=== PATIENT | female | born 1990 | race Caucasian/White ===

== ENCOUNTER 2017-10-11 22:26 | Emergency (ER) | payer OTHER ==
[~2017-10-11] VITALS: Ht 160 cm; Wt 84.8 kg
[~2017-10-11 22:26] MED LIST: ACET325 PO; AMLO5 PO; ATOR10 PO; AZIT250 PO; BAYER CHEWABLE81 MG PO; BUME2 PO; CLIN300 PO; CLON.1 PO; Catapres0.2 MG PO; DEXT40GEL PO; FURO20 PO; FURO40 PO; FURO80 PO; FUROSEMIDE PO; HYDACE5 PO; IBUP400 PO; INSDETPEN SC; INSN100I; INSR10I SC; INSUASPI; INSUASPI SC; INSULANI; INSULANI SC; INSULANPEN SC; LABE100 PO; LABE200 PO; LEVEMIR FL100 UNIT/1 SQ; LEVO750 PO; LISI5 PO; METO2.5 PO; MUPI1NAS; NEPHROCAPS QT1 EACH PO; Novolog100 UNIT/1 SC; POTASSIUM PO; POTCHL10ER PO; POTCHL20ER PO; RXPROM25 PO; SEVEC800 PO; SLOW FE142 MG PO; SPIR25 PO; SULTRIDS PO; Verotin-Gr Cap1 EACH PO
[2017-10-11] MEDS ORDERED: CINA30 PO (23:38)
[2017-10-11] MEDS ORDERED: Amoxicillin500 M1 PO (23:53)
== END 2017-10-11 23:54 | disposition home or self-care (01) ==
LOC: ER 22:26
DX: J02.0 Streptococcal pharyngitis (principal); E10.9 Type 1 diabetes mellitus without complications; I10 Essential (primary) hypertension; Z91.048 Other nonmedicinal substance allergy status; Z88.8 Allergy status to other drugs, medicaments and biological substances; Z79.899 Other long term (current) drug therapy; Z79.2 Long term (current) use of antibiotics
CPT/HCPCS: 99283

== ENCOUNTER 2018-04-26 10:31 | Observation (INO) | payer OTHER ==
[~2018-04-26] VITALS: Ht 160 cm; Wt 80.4 kg
[~2018-04-26 10:31] MED LIST changes: +Amoxicillin500 M1 PO; +CINA30 PO
[2018-04-26] MEDS ORDERED: CALC.25 PO (10:40)
[2018-04-26 11:30] LABS: BASOPHILS ABSOLUTE AUTO 0.02 K/mm3 (0.00-0.23); BASOPHILS PERCENT AUTO 0 % (0-2); EOSINOPHILS ABSOLUTE AUTO 0.13 K/mm3 (0.00-0.68); EOSINOPHILS PERCENT AUTO 2 % (0-6); IMMATURE GRAN ABSOLUTE AUTO 0.03 K/mm3 (0.00-0.10); IMMATURE GRAN PERCENT AUTO 1 % (0-1); LYMPHOCYTES ABSOLUTE AUTO 1.55 K/mm3 (0.84-5.20); LYMPHOCYTES PERCENT AUTO 25 % (21-46); MONOCYTES ABSOLUTE AUTO 0.36 K/mm3 (0.16-1.47); MONOCYTES PERCENT AUTO 6 % (4-13); Mean Corpuscular HGB 29.4 pg (26.0-34.0); Mean Corpuscular HGB Conc 34.2 g/dL (31.5-36.5); Mean Corpuscular Volume 86 fL (80-100); Mean Platelet Volume 8.7 fL (9.1-12.4); NEUTROPHILS ABSOLUTE AUTO 4.19 K/mm3 (1.96-9.15); NEUTROPHILS PERCENT AUTO 67 % (41-73); Platelet Count 204 K/mm3 (150-400); RDW Coefficient Variation 12.9 % (11.7-14.2); RDW Standard Deviation 40.6 fL (35.1-46.3); White Blood Cell Count 6.28 K/mm3 (4.00-11.30)
[2018-04-26 11:31] LABS: Hematocrit 15.5 % (33.0-51.0); Hemoglobin 5.3 g/dL (11.5-16.0)
[2018-04-26 11:47] LABS: Magnesium, Blood 2.2 mg/dL (1.6-2.4)
[2018-04-26 11:54] LABS: Beta-hydroxybutyrate 1.1 mg/dL (0.2-2.8)
[2018-04-26 12:08] LABS: Bun/Creatinine Ratio 9.2 (12.0-20.0); Calcium, Blood 7.5 mg/dL (8.5-10.1); Creatinine, Blood 10.4 mg/dL (0.40-1.00); Potassium, Blood 3.4 mmol/L (3.5-5.5)
[2018-04-26] MEDS ORDERED: Calcium Acetat667 MG PO (13:58)
[2018-04-27 04:49] LABS: Hematocrit 23.1 % (33.0-51.0); Hemoglobin 8.1 g/dL (11.5-16.0); Mean Corpuscular HGB 29.2 pg (26.0-34.0); Mean Corpuscular HGB Conc 35.1 g/dL (31.5-36.5); Mean Platelet Volume 8.9 fL (9.1-12.4); Platelet Count 215 K/mm3 (150-400); RDW Coefficient Variation 13.2 % (11.7-14.2); RDW Standard Deviation 40.4 fL (35.1-46.3); Red Blood Cell Count 2.77 M/mm3 (3.80-5.20)
[2018-04-27 05:06] LABS: Mean Corpuscular Volume 83 fL (80-100)
[2018-04-27 05:14] LABS: Magnesium, Blood 2.1 mg/dL (1.6-2.4)
[2018-04-27 05:22] LABS: Albumin, Blood 2.3 g/dL (3.4-5.0); Anion Gap 12 mmol/L (6-16); Blood Urea Nitrogen 95 mg/dL (8-24); Bun/Creatinine Ratio 9.4 (12.0-20.0); CO2, Blood 26 mmol/L (21-32); Calcium, Blood 6.8 mg/dL (8.5-10.1); Chloride, Blood 99 mmol/L (98-108); Glomerular Filtration Rate 5 (60-); Glucose, Blood 190 mg/dL (70-99); Phosphorus, Blood 4.8 mg/dL (2.5-4.9); Potassium, Blood 2.9 mmol/L (3.5-5.5); Sodium, Blood 137 mmol/L (136-145)
== END 2018-04-27 09:45 | disposition home or self-care (01) ==
LOC: ER 10:31 → PCU 10:32
PROVIDERS: Emergency Medicine; Internal Medicine; Internal Medicine Nephrology
DX: D62 Acute posthemorrhagic anemia (principal); E10.65 Type 1 diabetes mellitus with hyperglycemia; E10.22 Type 1 diabetes mellitus with diabetic chronic kidney disease; I12.0 Hypertensive chronic kidney disease with stage 5 chronic kidney disease or end stage renal disease; N18.6 End stage renal disease; E87.6 Hypokalemia; E86.9 Volume depletion, unspecified; Z88.8 Allergy status to other drugs, medicaments and biological substances; Z91.048 Other nonmedicinal substance allergy status; Z79.899 Other long term (current) drug therapy
CPT/HCPCS: 36415; 36430; 76830; 76856; 80048; 80069; 82010; 82947; 83735; 84132; 84703; 85025; 85027; 86850; 86900; 86901; 86923; 96372; 99285-25; G0257; G0378; J0881; J7030; P9016

== ENCOUNTER → 2018-10-27 | Outpatient (CLI) | payer OTHER ==
[~2018-10-27] MED LIST changes: +CALC.25 PO; +Calcium Acetat667 MG PO
[2018-10-27 14:05] LABS: Influenza A Negative (NEGATIVE); Influenza B Negative (NEGATIVE)
== END ==
LOC: LAB 13:34 → LAB SHORT 13:34
PROVIDERS: Nurse Practitioner Family
DX: R50.9 Fever, unspecified (principal); R05 Cough; R53.83 Other fatigue
CPT/HCPCS: 87804

== ENCOUNTER 2018-10-31 17:27 | Emergency (ER) | payer OTHER ==
[~2018-10-31] VITALS: Ht 160 cm; Wt 85.7 kg
[2018-10-31 18:42] LABS: BASOPHILS ABSOLUTE AUTO 0.01 K/mm3 (0.00-0.23); BASOPHILS PERCENT AUTO 0 % (0-2); EOSINOPHILS ABSOLUTE AUTO 0.15 K/mm3 (0.00-0.68); EOSINOPHILS PERCENT AUTO 2 % (0-6); Hematocrit 22.6 % (33.0-51.0); Hemoglobin 7.9 g/dL (11.5-16.0); IMMATURE GRAN ABSOLUTE AUTO 0.02 K/mm3 (0.00-0.10); IMMATURE GRAN PERCENT AUTO 0 % (0-1); LYMPHOCYTES ABSOLUTE AUTO 1.28 K/mm3 (0.84-5.20); LYMPHOCYTES PERCENT AUTO 17 % (21-46); MONOCYTES ABSOLUTE AUTO 0.39 K/mm3 (0.16-1.47); MONOCYTES PERCENT AUTO 5 % (4-13); Mean Corpuscular HGB 29.6 pg (26.0-34.0); Mean Corpuscular Volume 85 fL (80-100); Mean Platelet Volume 8.8 fL (9.1-12.4); NEUTROPHILS ABSOLUTE AUTO 5.66 K/mm3 (1.96-9.15); NEUTROPHILS PERCENT AUTO 75 % (41-73); Platelet Count 272 K/mm3 (150-400); RDW Coefficient Variation 11.7 % (11.7-14.2); RDW Standard Deviation 35.5 fL (35.1-46.3); Red Blood Cell Count 2.67 M/mm3 (3.80-5.20); White Blood Cell Count 7.51 K/mm3 (4.00-11.30)
[2018-10-31 19:09] LABS: Albumin, Blood 2.4 g/dL (3.4-5.0); Albumin/Globulin Ratio 0.6 (0.8-1.8); Bilirubin, Total 0.3 mg/dL (0.1-1.0); Bun/Creatinine Ratio 7.3 (12.0-20.0); Calcium, Blood 7.6 mg/dL (8.5-10.1); Creatinine, Blood 15.4 mg/dL (0.40-1.00); Globulin, Blood 3.8 g/dL (2.2-4.0); Total Protein, Blood 6.2 g/dL (6.4-8.2)
[2018-10-31 20:32] LABS: Amylase, Blood 61 U/L (25-115)
[2018-10-31 20:55] LABS: Influenza A Negative (NEGATIVE); Influenza B Negative (NEGATIVE)
== END 2018-10-31 21:28 | disposition home or self-care (01) ==
LOC: ER 17:27
PROVIDERS: Emergency Medicine; Physician Assistant
DX: K29.00 Acute gastritis without bleeding (principal); E87.6 Hypokalemia; E10.9 Type 1 diabetes mellitus without complications; I10 Essential (primary) hypertension; Z79.899 Other long term (current) drug therapy
CPT/HCPCS: 36415; 80053; 82150; 83690; 85025; 87804; 96360; 99284-25; J7030

== ENCOUNTER 2018-11-11 21:08 | Inpatient (IN) | payer OTHER ==
[~2018-11-11] VITALS: Ht 160 cm; Wt 86.2 kg
[~2018-11-11 21:08] MED LIST changes: +LOSA50 PO
[2018-11-11 21:57] LABS: BASOPHILS ABSOLUTE AUTO 0.01 K/mm3 (0.00-0.23); BASOPHILS PERCENT AUTO 0 % (0-2); EOSINOPHILS ABSOLUTE AUTO 0.08 K/mm3 (0.00-0.68); EOSINOPHILS PERCENT AUTO 1 % (0-6); Hemoglobin 9.1 g/dL (11.5-16.0); IMMATURE GRAN ABSOLUTE AUTO 0.05 K/mm3 (0.00-0.10); IMMATURE GRAN PERCENT AUTO 0 % (0-1); LYMPHOCYTES ABSOLUTE AUTO 0.33 K/mm3 (0.84-5.20); LYMPHOCYTES PERCENT AUTO 3 % (21-46); MONOCYTES ABSOLUTE AUTO 0.52 K/mm3 (0.16-1.47); MONOCYTES PERCENT AUTO 4 % (4-13); Mean Corpuscular HGB 29.4 pg (26.0-34.0); Mean Corpuscular Volume 84 fL (80-100); Mean Platelet Volume 8.4 fL (9.1-12.4); NEUTROPHILS ABSOLUTE AUTO 11.77 K/mm3 (1.96-9.15); NEUTROPHILS PERCENT AUTO 92 % (41-73); Platelet Count 321 K/mm3 (150-400); RDW Coefficient Variation 11.6 % (11.7-14.2); RDW Standard Deviation 35.5 fL (35.1-46.3); White Blood Cell Count 12.76 K/mm3 (4.00-11.30)
[2018-11-11 22:21] LABS: Alanine Aminotransfer (ALT/SGP 8 U/L (12-78); Albumin/Globulin Ratio 0.5 (0.8-1.8); Alk Phos 165 U/L (50-136); Anion Gap 13 mmol/L (6-16); Aspartate Aminotrans (AST/SGOT <3 U/L (12-37); Bilirubin, Total 0.3 mg/dL (0.1-1.0); Blood Urea Nitrogen 125 mg/dL (8-24); Bun/Creatinine Ratio 8.2 (12.0-20.0); CO2, Blood 28 mmol/L (21-32); Chloride, Blood 91 mmol/L (98-108); Globulin, Blood 4.3 g/dL (2.2-4.0); Glomerular Filtration Rate 3 (60-); Glucose, Blood 256 mg/dL (70-99); Potassium, Blood 3.5 mmol/L (3.5-5.5); Sodium, Blood 132 mmol/L (136-145); Total Protein, Blood 6.3 g/dL (6.4-8.2)
[2018-11-12 00:28] LABS: Automated BF RBC Count 0.004 M/mm3 (0-0); Body Fluid WBC Count 9190 /mm3 (0-999); RBC Count, Body Fluid 4000 /mm3 (0-0)
[2018-11-12 00:39] LABS: Appearance, Body Fluid Cloudy (Clear); Color, Body Fluid Yellow (None-Yellow); Total Cell Count, Body Fluid 100
[2018-11-12] MEDS ORDERED: Amoxicillin500 MG PO (00:39)
[2018-11-12] MEDS ORDERED: BENZ100A PO (00:39)
--- NOTE | 2018-11-12 00:55 | NUR ---
DIALYSIS CALLED IN BY DR BLUNT. PT IN ER ROOM 19. WAITED ABOUT 10 MIN FOR PT TO RETURN TO ROOM FROM CT SCAN. TOOK PD SAMPLE PER PROTOCAL, LABELED AND DELIVERED TO THE LAB. ORDERS FOR CELL CT, C&S, AND GRAM STAIN. DR BLUNT GAVE ORDERS FOR 3 IN AND OUT FLUSHES TO BE DONE AND THEN NORMAL PD TX WITH ANTIBIOTICS IN LAST DWELL. DIANEAL BAGS AND ORDERS DELIVERED TO THE PHARMACY. WAITING FOR PT BE ADMITTED TO A ROOM AND RX TO BE COMPLETED.
--- NOTE | 2018-11-12 02:53 | NUR ---
DIALYSIS-PD PT IN ROOM 356. TOOK PD MACHINE TO ROOM AND CONNECTED HER TO 3 IN AND OUT FLUSHES AT 0226. HAD TO BYPASS THE INITIAL DRAIN DUE TO LOW VOLUME. ADVISED THE MEDICAL FLOOR RN TO CALL IN CASE OF ALARMS. SITE WNL.
--- NOTE | 2018-11-12 04:30 | NUR ---
DIALYSIS-PD DC'ED IN AND FLUSHES AND CONNECTED TO THE NIGHT DIALYSIS. LAST FILL HAS ANTIBIOTICS IN IT. DONE PER PROTOCAL.
--- NOTE | 2018-11-12 04:46 | NUR ---
LATE ENTRY; 0210 PT ADMITTED TO UNIT AFTER TRANSPORT VIA STRETCHER FROM ER WITH SPOUSE AT SIDE. PTS WAS STARTED ON PERITNEAL DIALYSIS IMMEDIATELY AFTER ARRIVING TO ROOM BY Ella MEDRANO RN. PT IS NOTED TO HAVE INSULIN PUMP LEFT FLANK THAT WITHOU S/S INFECTION AT INSERTION SITE.
[2018-11-12 05:27] LABS: Adenovirus Not Detected (NOT DETECT); Bordetella pertussis Not Detected (NOT DETECT); Chlamydophila pneumoniae Not Detected (NOT DETECT); Coronavirus 229E Not Detected (NOT DETECT); Coronavirus HKU1 Not Detected (NOT DETECT); Coronavirus NL63 Not Detected (NOT DETECT); Coronavirus OC43 Not Detected (NOT DETECT); Human Metapneumovirus Not Detected (NOT DETECT); Human Rhinovirus/Enterovirus Not Detected (NOT DETECT); Influenza A Not Detected (NOT DETECT); Influenza A/2009-H1 Not Detected (NOT DETECT); Influenza A/H1 Not Detected (NOT DETECT); Influenza A/H3 Not Detected (NOT DETECT); Influenza B Not Detected (NOT DETECT); Mycoplasma pneumoniae Not Detected (NOT DETECT); Parainfluenza Virus 1 Not Detected (NOT DETECT); Parainfluenza Virus 2 Not Detected (NOT DETECT); Parainfluenza Virus 3 Not Detected (NOT DETECT); Parainfluenza Virus 4 Not Detected (NOT DETECT); Respiratory Syncytial Virus Not Detected (NOT DETECT)
[2018-11-12 05:33] LABS: Hematocrit 22.1 % (33.0-51.0); Hemoglobin 7.6 g/dL (11.5-16.0)
--- NOTE | 2018-11-12 06:01 | NUR ---
PT AM LABS: HG 7.6, HCT 22.1; BP 134/84, 100.5--111--20. TYLENOL 650MG PO GIVEN AT 0545. DR ADAM NOTIFIED OF RESULTS WITH NO ORDERS AT THIS TIME.
[2018-11-12 06:09] LABS: Albumin, Blood 1.6 g/dL (3.4-5.0); Anion Gap 10 mmol/L (6-16); Blood Urea Nitrogen 121 mg/dL (8-24); Bun/Creatinine Ratio 8.4 (12.0-20.0); CO2, Blood 28 mmol/L (21-32); Calcium, Blood 7.8 mg/dL (8.5-10.1); Chloride, Blood 93 mmol/L (98-108); Glomerular Filtration Rate 3 (60-); Glucose, Blood 240 mg/dL (70-99); Phosphorus, Blood 3.8 mg/dL (2.5-4.9); Potassium, Blood 3.1 mmol/L (3.5-5.5); Sodium, Blood 131 mmol/L (136-145)
[2018-11-12 10:50] LABS: Automated BF WBC Count 1.321 K/mm3 (0-999); Body Fluid WBC Count 1321 /mm3 (0-999)
--- NOTE | 2018-11-12 11:20 | NUR ---
DIALYSIS-PD 1015 WENT TO PT ROOM AFTER CALLING DR BLUNT FOR ORDERS. HE WANTS A CELL COUNT DONE FROM THE PD BAG. CHECKED ON STATUS OF LAST NIGHTS TX. STILL RUNNING. TOOK SAMPLE FROM PD BAG AND DELIVERED TO THE LAB. TOOK DIANEAL BAG FOR IN AND OUT FLUSHES X 3 TO THE PHARMACY FOR HEPARIN IP. (1.5% 6 LITER).
[2018-11-12 11:34] LABS: RBC Count, Body Fluid 21 /mm3 (0-0)
[2018-11-12 11:36] LABS: Color, Body Fluid No color (None-Yellow)
[2018-11-12 11:37] LABS: Appearance, Body Fluid Hazy (Clear)
[2018-11-12 11:49] LABS: Total Cell Count, Body Fluid 200
--- NOTE | 2018-11-12 13:03 | NUR ---
DIALYSIS-PD SET UP MACHINE FOR IN AND FLUSHES. CALLED DR BLUNT WITH CELL COUNT RESULTS. HE GAVE ME ORDERS FOR TONIGHTS TREATMENT.TOOK THE BAGS TO THE PHARMACY. CHECKED ON PT, SHE IS RECIEVING A UNIT OF PRBC . SHE IS STILL DOING HER NIGHT TIME TREATMENT, IT WAS STARTED LATE DUE TO ADMISSION.
--- NOTE | 2018-11-12 17:45 | NUR ---
DIALYSIS-PD TX DC'ED AT 1430. 1382 ID [id number] UF. NO CHANGES PT FEELS ALITTLE BETTER. TOOK A SHOWER.
--- NOTE | 2018-11-12 17:48 | NUR ---
DIALYSIS-PD PT CONNECTED TO 3 IN AND OUT FLUSHES WITH 1.5% DIANEAL AT 1725 PER PROTOCAL. NO CHANGES.
--- NOTE | 2018-11-12 18:36 | NUR ---
PATIENT HAD PD TODAY AND ONE UNIT RBC. TOLERATED WELL. NO CHANGES IN CONDITION.
--- NOTE | 2018-11-12 20:01 | NUR ---
DIALYSIS-PD 1922 DC'ED THE 3 IN AND OUT FLUSHES ID [id number], UF [id number]. CONNECTED THE NIGHT TIME TX PER PROTOCAL. STARTED 1934. DRAINAGE BAG FROM FLUSHES STILL CLOUDY BUT MUCH IMPROVED.
--- NOTE | 2018-11-13 04:43 | NUR ---
28 Y/O FEMALE RESTED COMFORTABLY ALL EVENING IN BED, NO NAUSEA OR PAIN VOICED. PT HAD PERITONEAL DIALYSIS PERFORMED ALL NIGHT AT BEDSIDE. PT BED IN LOW POSITION, CALL LIGHT AT SIDE.
[2018-11-13 05:02] LABS: Hematocrit 25.1 % (33.0-51.0); Hemoglobin 8.6 g/dL (11.5-16.0)
[2018-11-13 05:38] LABS: Magnesium, Blood 1.9 mg/dL (1.6-2.4)
[2018-11-13 05:46] LABS: Albumin, Blood 1.6 g/dL (3.4-5.0); Anion Gap 7 mmol/L (6-16); Blood Urea Nitrogen 85 mg/dL (8-24); CO2, Blood 31 mmol/L (21-32); Calcium, Blood 7.9 mg/dL (8.5-10.1); Chloride, Blood 94 mmol/L (98-108); Glomerular Filtration Rate 4 (60-); Glucose, Blood 211 mg/dL (70-99); Phosphorus, Blood 4.9 mg/dL (2.5-4.9); Potassium, Blood 3.2 mmol/L (3.5-5.5); Sodium, Blood 132 mmol/L (136-145)
--- NOTE | 2018-11-13 07:17 | NUR ---
PATIENT AWAKE, ALERT AND COMFORTABLE THYIS AM. SITTING UP IN BED WATCHING TV. OVERNIGHT CCPD THERAPY COMPLETED. PATIENT AESEPTICALLY DISCONNECTED AND CAPPED WITH NEW MINI-CAP. EFFLUENT REMAINS BUT SIGNIFICANTLY IMPROVED FROM TIME OF ADMIT. DR BLUNT CONTACTED FOR ORDERS / TODAY'S PLAN OF CARE. IN/OUT FLUSHES ORDERED FOR THIS MORNING.
--- NOTE | 2018-11-13 07:53 | NUR ---
[facility] FLUSHES SET UP PER DR BLUNT'S ORDER. PATIENT TO RECIEVE CCPD FLUSHES WITH UF CONCURRENT WITH ORDERED ONE UNIT PRBC TRANSFUSION ADMINISTERED PERIPHERALLY. PATIENT IN BED, WATCHING TV AND VERBALIZES COMFORT AT THIS TIME.
--- NOTE | 2018-11-13 13:11 | NUR ---
[facility] DAYTIME THERAPY COMPLETED. PATIENT UP IN ROOM GETTING PREPARED TO LEAVE FOR HOME. DISCHARGE ORDERS HAVE BEEN POSTED. PER DR BULNT'S INSTRUCTION, PATIENT HAS BEEN REQUESTED TO STOP BY THE [facility] ON THE WAY HOME TO CHECK IN WITH REEMA, THE P.D NURSE, AND SMALL PACKAGE AND BUNDLE SORTER CLERK ORDERED IP ANTIBIOTICS FOR USE AT HOME. PATIENT UNDERSTANDS INSTRUCTIONS AND WILL COMPLY.
--- NOTE | 2018-11-13 16:16 | NUR ---
DISCHARGED HOME AT 1357 WITH HER MOTHER. SHE HAS HER BELONGINGS AND INSTRUCTIONS. SHE IS GOING FROM HERE TO [facility]. SHE UNDERSTANDS SHE NEEDS ANTIBIOTICS IN HER PERITONEAL DIALYSATE. NO COMPLAINTS. PD CATH SITE WNL. SHE DID NOT NEED TO GIVE HERSELF ANY ADDITIONAL INSULIN TODAY. CBG'S CONTROLLED WELL WITH THE BASAL RATE ON HER INSULIN PUMP.SHE RECEIVED 1 UNIT OF PRBC'S THIS MORNING WHILE SHE HAD SOME INTRAPERITONEAL DIALYSIS.
== END 2018-11-13 13:57 | disposition home or self-care (01) | DRG 871 ==
LOC: ER 21:08 → MEDS 11-12 00:54 → ENPENDDIS 11-13 11:10 → MEDS 11-13 13:57
PROVIDERS: Emergency Medicine; Internal Medicine Nephrology; ADMIT Family Medicine
DX: A41.9 Sepsis, unspecified organism (principal); K65.2 Spontaneous bacterial peritonitis; N18.6 End stage renal disease; I12.0 Hypertensive chronic kidney disease with stage 5 chronic kidney disease or end stage renal disease; E87.1 Hypo-osmolality and hyponatremia; E10.22 Type 1 diabetes mellitus with diabetic chronic kidney disease; E66.01 Morbid (severe) obesity due to excess calories; D63.1 Anemia in chronic kidney disease; Z99.2 Dependence on renal dialysis; Z96.41 Presence of insulin pump (external) (internal); Z68.33 Body mass index [BMI] 33.0-33.9, adult
CPT/HCPCS: 36415; 36430; 71046; 74177; 80053; 80069; 82947; 83605; 83690; 83735; 85014; 85018; 85025; 86850; 86900; 86901; 86923; 87040; 87070; 87075; 87077; 87081; 87186; 87205; 87486; 87581; 87633; 87798; 89051; 96361-59; 96374-59; 99285-25; J0690; J0696; J0713; J0881; J1644; J2405; J3480; J7030; P9016; Q9967

== ENCOUNTER 2019-04-20 04:12 | Observation (INO) | payer OTHER ==
[~2019-04-20] VITALS: Ht 160 cm; Wt 86.2 kg
[~2019-04-20 04:12] MED LIST changes: +ACET500 PO; +Amoxicillin500 MG PO; +BENZ100A PO; -CALC.25 PO; +CEPH500 PO; +Calcitriol0.5 MCG PO; +Novolog100 UNIT/1; -Novolog100 UNIT/1 SC; +PROM25 PO; +VIRT-CAPS SOFTGE1 MG PO
[2019-04-20] MEDS ORDERED: PANT20 PO (04:30)
[2019-04-20] MEDS ORDERED: ONDA4ODT PO (04:34)
[2019-04-20 04:45] LABS: BASOPHILS ABSOLUTE AUTO 0.02 K/mm3 (0.00-0.23); BASOPHILS PERCENT AUTO 0 % (0-2); EOSINOPHILS ABSOLUTE AUTO 0.01 K/mm3 (0.00-0.68); EOSINOPHILS PERCENT AUTO 0 % (0-6); Hematocrit 30.7 % (33.0-51.0); Hemoglobin 10.4 g/dL (11.5-16.0); IMMATURE GRAN ABSOLUTE AUTO 0.04 K/mm3 (0.00-0.10); IMMATURE GRAN PERCENT AUTO 1 % (0-1); LYMPHOCYTES ABSOLUTE AUTO 0.86 K/mm3 (0.84-5.20); LYMPHOCYTES PERCENT AUTO 10 % (21-46); MONOCYTES ABSOLUTE AUTO 0.38 K/mm3 (0.16-1.47); MONOCYTES PERCENT AUTO 5 % (4-13); Mean Corpuscular HGB 28.3 pg (26.0-34.0); Mean Corpuscular HGB Conc 33.9 g/dL (31.5-36.5); Mean Corpuscular Volume 83 fL (80-100); Mean Platelet Volume 8.9 fL (9.1-12.4); NEUTROPHILS ABSOLUTE AUTO 7.19 K/mm3 (1.96-9.15); NEUTROPHILS PERCENT AUTO 85 % (41-73); Platelet Count 233 K/mm3 (150-400); RDW Coefficient Variation 11.9 % (11.7-14.2); RDW Standard Deviation 36.1 fL (35.1-46.3); Red Blood Cell Count 3.68 M/mm3 (3.80-5.20)
[2019-04-20 05:05] LABS: Base Excess Venous -0.7 mmol/L; Bicarbonate Venous 23.9 mmol/L (24.0-30.0); PCO2 Venous 41.9 mmHg (38-42); PO2 Venous 131 mmHg (38-42); pH Blood Venous 7.38 (7.34-7.37)
[2019-04-20 05:10] LABS: Magnesium, Blood 2.2 mg/dL (1.6-2.4)
[2019-04-20 05:13] LABS: Albumin, Blood 3.1 g/dL (3.4-5.0); Albumin/Globulin Ratio 0.9 (0.8-1.8); Bilirubin, Total 0.4 mg/dL (0.1-1.0); Bun/Creatinine Ratio 8.5 (12.0-20.0); Calcium, Blood 8.5 mg/dL (8.5-10.1); Creatinine, Blood 17.1 mg/dL (0.40-1.00); Globulin, Blood 3.6 g/dL (2.2-4.0); Potassium, Blood 4.4 mmol/L (3.5-5.5); Total Protein, Blood 6.7 g/dL (6.4-8.2)
[2019-04-20 05:22] LABS: Glucose, Blood 564 mg/dL (70-99)
--- NOTE | 2019-04-20 07:33 | NUR ---
ASSUMED CARE OF PT AT 0640, ARRIVED VIA STRETCHER TO ICU. PT IS ALERT AND ORIENTED X SELF, PLACE, SITUATION, AND DATE. PT SEEMS LETHARGIC. C/O OF MILD NAUSEA AND 6/10 ACHING LOWER BACK PAIN. PT ONLY HAD ONE IV IN RIGHT AC THAT WAS PATENT, NOTHING WAS INFUSING. PT IS HYPERTENSIVE, AND TACHYCARDIC. SHE IS AFEBRILE. CLEAR AND EQUAL BREATH SOUNDS IN ALL LOBES, DIMINISHED IN BASES. BTX4 QUADRANTS. SKIN IS WARM TO TOUCH, PINK AND DRY - NO SIGNS OF SKIN BREAKDOWN. BED IS LOW AND LOCKED. CALL LIGHT WITHIN REACH. GAVE REPORT TO LAKESHIA.
--- NOTE | 2019-04-20 07:34 | NUR ---
START OF SHIFT NOTE: RECEIVED REPORT FROM IJEOMA MONGE, RN, ASSUMED CARE, PATIENT IS SLEEPING AT THIS TIME, DR. BLUNT NOTIFIED BY THIS RN FOR CONSULT AT 0721 HOURS, PATIENT IS ON INSULIN GTT AT 3, ALSO HAS IV FLUIDS INFUSING, ONLY ONE PIV IN PLACE, NEEDS ADDITIONAL PIV, LUNG SOUNDS CLEAR, PATIENT C/O CHRONIC BACK PAIN, CALL LIGHT IN REACH, WILL CONTINUE TO MONITOR.
--- NOTE | 2019-04-20 08:00 | NUR ---
ATTEMPT TO PLACE POWERGLIDE, PATIENT ONLY HAS ONE PIV, UNABLE TO PLACE D/T PATIENT BEING DEHYDRATED, WILL RE ATTEMPT LATER TODAY.
--- NOTE | 2019-04-20 09:05 | NUR ---
PATIENT C/O NAUSEA, RECEIVED REGLAN IV ORDERED, CALL LIGHT IN REACH, WILL CONTINUE TO MONITOR.
--- NOTE | 2019-04-20 09:45 | NUR ---
PATIENT TOOK ORAL AM MEDICATION WELL WITH SIPS OF WATER, RECEIVED CLONODINE 0.3 MG PO FOR HIGH BLOOD PRESSURE, STATED THAT SHE "DOES NOT FEEL NAUSEOUS AT THIS TIME", WAS CALLED BY THIS RN AND UPDATED ON PATIENT CONDITION, CALL LIGHT IN REACH, WILL CONTINUE TO MONITOR.
--- NOTE | 2019-04-20 11:06 | NUR ---
DR. YEPEZ IN TO SEE PATIENT, NO NEW ORDERS RECEIVED.
[2019-04-20 11:20] LABS: Calcium, Blood 8.6 mg/dL (8.5-10.1); Potassium, Blood 4.1 mmol/L (3.5-5.5)
[2019-04-20 11:21] LABS: Bun/Creatinine Ratio 8.5 (12.0-20.0); Creatinine, Blood 17.4 mg/dL (0.40-1.00)
--- NOTE | 2019-04-20 12:04 | NUR ---
DR YEPEZ CALLED BACK AND CRITICAL LAB VALUE DISCUSSED, CR. 17.4, ALSO CHEMSTICKS BELOW 200 X3, CLEAR LIQUID DIET ORDERED, IF NO NAUSEA PATIENT MAYBE ADVANCED TO DIABETIC ADA.
--- NOTE | 2019-04-20 12:59 | NUR ---
PT CBG CHECKED. EATING LUNCH. ICE WATER PROVIDED.
--- NOTE | 2019-04-20 14:12 | NUR ---
PATIENT REPORTS THAT SHE FEELS "SO MUCH BETTER", ATE LUNCH, DIABETIC DIET, NO NAUSEA/VOMITING, DENIES PAIN, AFEBRILE, BG 194, INSULIN DRIP STOPPED PER DR. YEPEZ, AND PATIENT RESTARTED HER INSULIN PUMP PER DR. YEPEZ, CHEMSTICKS AC/HS.
--- NOTE | 2019-04-20 15:49 | NUR ---
DR. YEPEZ CALLED AND UPDATED ON PATIENT CONDITION, STATUS CHANGE TO MEDICAL WITH NO TELELMETRY.
--- NOTE | 2019-04-20 16:12 | NUR ---
AWAITING CALL BACK FROM DR. YEPEZ, PATIENT DOES PERITONEAL DIALYSIS AT HOME EVERY NIGHT AND STATED "I WILL NOT GO ONE NIGHT WITHOUT IT".
--- NOTE | 2019-04-20 16:36 | NUR ---
DR. BLUNT CALLED ABOUT PATIENT'S NIGHTLY PERITONEAL DIALYSIS, ORDERS RECEIVED, CALLED JEFFREY MEDRANO, DIALYSIS NURSE, WILL SET UP FOR PERITONEAL DIALYSIS TONIGHT.
--- NOTE | 2019-04-20 16:44 | NUR ---
REPORT GIVEN TO JACQUELINE MACHADO, ON MEDICAL FLOOR, DR. BLUNT IN TO SEE PATIENT, PATIENT WILL TRANSFER TO ROOM 360 VIA WHEELCHAIR.
--- NOTE | 2019-04-20 18:29 | NUR ---
PATIENT TRANSFERED FROM ICU. PATIENT IS ALERT AND ORIENTED. EAGER TO DISCHARGE HOME TOMORROW FOR HER DAUGHTERS BIRTHDAY [employer]. STATES HER BLOOD SUGARS NORMALLY LEVEL OUT DURING HER PERITONEAL DIALYSIS, LAST NIGHT IT HADN'T. STATES SHE FEELS MUCH BETTER NOW. NO NAUSEA OR VOMITING NOTED SINCE ADMITTING TO THE MED FLOOR. SITTING IN BED CHATTING WITH FAMILY.
--- NOTE | 2019-04-20 21:11 | NUR ---
DIALYSIS-PD WENT OVER PT'S HOME ORDERS WITH HER. CONNECTED PT TO TX PER SELENE. PT VISITING WITH FAMILY. GAVE SUPPLIES SO SHE COULD TAKE A SHOWER IN THE AM.
--- NOTE | 2019-04-20 21:31 | NUR ---
PT'S BLOOD GLUCOSE THIS EVENING 401. PT SELF ADMINISTERED 6.7 UNITS OF INSULIN WITH HER INSULIN PUMP. PT REPORTS THAT THIS IS HOW SHE WOULD MANAGE IT AT HOME. WILL RECHECK BLOOD GLUCOSE IN 2 HOURS TO ENSURE IT IS COMING DOWN.
--- NOTE | 2019-04-20 23:33 | NUR ---
PT'S BLOOD GLUCOSE 279, PT SELF ADMINISTERED 2.1 UNITS AND REQUESTED TO NOT HAVE BLOOD GLUCOSE LEVEL CHECKED AGAIN UNTIL THE MORNING.
[2019-04-21 04:58] LABS: Hematocrit 22.9 % (33.0-51.0); Hemoglobin 7.9 g/dL (11.5-16.0); Mean Corpuscular HGB 28.5 pg (26.0-34.0); Mean Corpuscular HGB Conc 34.5 g/dL (31.5-36.5); Mean Corpuscular Volume 83 fL (80-100); Mean Platelet Volume 8.9 fL (9.1-12.4); Platelet Count 191 K/mm3 (150-400); RDW Standard Deviation 36.6 fL (35.1-46.3); Red Blood Cell Count 2.77 M/mm3 (3.80-5.20); White Blood Cell Count 6.78 K/mm3 (4.00-11.30)
--- NOTE | 2019-04-21 05:06 | NUR ---
SHIFT SUMMARY PT REPORTS FEELING MUCH BETTER THIS EVENING. HOPEFUL TO BE DISCHARGED TODAY IT IS HER DAUGHTER'S BIRTHDAY [employer]. DENIED ANY NAUSEA THROUGHOUT THE SHIFT. PERITONEAL DIALYSIS STARTED BY DIALYSIS NURSE AND RAN THROUGHOUT THE NIGHT WITH NO ISSUES. NO COMPLAINTS OF PAIN THIS EVENING. PT SLEPT WELL THROUGH MOST OF THE NIGHT. BLOOD SUGAR CHECKED X 2 THIS EVENING, FIRST READING 401 AND DROPPING TO 279. PT SELF ADMINISTERS INSULIN WITH PUMP, GIVING A TOTAL OF 8.9 UNITS OF INSULIN. PT HAS NOT VOIDED THIS EVENING AND REPORTS THIS IS NORMAL FOR HER AND THAT SHE GENERALLY ONLY VOIDS ONCE A DAY. VITAL SIGNS STABLE, WILL CONTINUE TO MONITOR.
[2019-04-21 05:37] LABS: Magnesium, Blood 2.3 mg/dL (1.6-2.4)
[2019-04-21 06:16] LABS: Alanine Aminotransfer (ALT/SGP 12 U/L (12-78); Albumin, Blood 2.3 g/dL (3.4-5.0); Albumin/Globulin Ratio 0.8 (0.8-1.8); Alk Phos 120 U/L (50-136); Anion Gap 13 mmol/L (6-16); Aspartate Aminotrans (AST/SGOT <3 U/L (12-37); Bilirubin, Total 0.2 mg/dL (0.1-1.0); Blood Urea Nitrogen 147 mg/dL (8-24); Bun/Creatinine Ratio 8.8 (12.0-20.0); CO2, Blood 29 mmol/L (21-32); Chloride, Blood 92 mmol/L (98-108); Globulin, Blood 2.9 g/dL (2.2-4.0); Glomerular Filtration Rate 3 (60-); Glucose, Blood 132 mg/dL (70-99); Phosphorus, Blood 3.7 mg/dL (2.5-4.9); Potassium, Blood 3.6 mmol/L (3.5-5.5); Sodium, Blood 134 mmol/L (136-145); Total Protein, Blood 5.2 g/dL (6.4-8.2)
--- NOTE | 2019-04-21 08:10 | NUR ---
PD DISCONNECT PT WAS DISCONNECTED WHEN DIALYSIS NURSE ARRIVED. PT DC, SITE AND CATH CLEAN, DRY AND DRESSED PER PROTOCOL. NO DRAINAGE, REDNESS OR SWELLING NOTED. EFFLUENT CLEAR. ID VO: [id number]. LAST UF [id number]. AVE DWELL TIME 1:29. PT STATED THAT SHE IS GOING HOME TODAY. MACHINE BROUGHT TO DIALYSIS STORAGE, DISINFECTED AND STORED PER PROTOCOL. WILL RETURN TONIGHT TO RECONECT PT TO TX IF PATIENT DOES NOT DISCHARGE HOME.
--- NOTE | 2019-04-21 09:58 | NUR ---
PATIENT IS REFUSING TO STAY AND HAVE A BLOOD TRANSFUSION. HER DAUGHTER'S BIRTHDAY IS TODAY AND SHE SAYS SHE WILL FOLLOW UP WITH DR. BLUNT AN OUTPATIENT FOR A TRANSFUSION. DR. BLUNT AND DR. YEPEZ WERE NOTIFIED. DR. YEPEZ AT BEDSIDE AND WILL PLACE D/C ORDERS.
--- NOTE | 2019-04-21 10:35 | NUR ---
PATIENT D/C'D TO HOME. NO NEW PRESCRIPTIONS. D/C INSTRUCTIONS AND EDUCATION DISCUSSED WITH PATIENT AND COPY PROVIDED. PATIENT DENIES ANY FURTHER QUESTIONS OR CONCERNS.
[2019-05-25] MEDS ORDERED: LACT PO (17:57)
[2019-05-25] MEDS ORDERED: AZIT500 PO (17:58)
[2019-05-25] MEDS ORDERED: CEFU500T30 PO (17:58)
== END 2019-04-21 10:35 | disposition home or self-care (01) ==
LOC: ER 04:12 → ICUW 04:13 → MEDS 17:32
PROVIDERS: Emergency Medicine; ADMIT Internal Medicine
DX: E10.65 Type 1 diabetes mellitus with hyperglycemia (principal); I12.0 Hypertensive chronic kidney disease with stage 5 chronic kidney disease or end stage renal disease; E10.22 Type 1 diabetes mellitus with diabetic chronic kidney disease; N18.6 End stage renal disease; D63.1 Anemia in chronic kidney disease; I16.0 Hypertensive urgency; E87.1 Hypo-osmolality and hyponatremia; E86.0 Dehydration; E72.51 Non-ketotic hyperglycinemia; Z99.2 Dependence on renal dialysis; Z96.41 Presence of insulin pump (external) (internal); Z79.899 Other long term (current) drug therapy; Z88.8 Allergy status to other drugs, medicaments and biological substances; Z91.048 Other nonmedicinal substance allergy status
CPT/HCPCS: 36415; 71045; 80048; 80053; 82010; 82803; 82947; 83036; 83605; 83690; 83735; 84100; 84703; 85025; 85027; 86850; 86900; 86901; 86923; 87040; 96361; 96372; 96374; 96375; 99285-25; C9113; G0257; G0378; J0360; J0881; J1644; J1815; J2405; J2550; J2765; J7030

== ENCOUNTER 2019-08-08 11:27 | Emergency (ER) | payer OTHER ==
[~2019-08-08] VITALS: Ht 162.6 cm; Wt 70.3 kg
[~2019-08-08 11:27] MED LIST changes: +AZIT500 PO; +CEFU500T30 PO; +LACT PO; +ONDA4ODT PO; +PANT20 PO
[2019-08-29] MEDS ORDERED: LEVOFLOXACIN250 MG PO (16:28)
[2019-08-29] MEDS ORDERED: Carvedilol25 MG PO (16:46)
[2019-08-29] MEDS ORDERED: SEVEC800 PO (16:46)
[2019-08-29] MEDS ORDERED: CLONIDINE1 EAC2 TOP (16:47)
[2019-08-29] MEDS ORDERED: Heartburn Relie20 MG PO (16:48)
[2019-08-29] MEDS ORDERED: Calcium Acetat667 MG PO (18:39)
[2019-08-29] MEDS ORDERED: THERA-D2000 UNIT PO (18:39)
[2019-08-29] MEDS ORDERED: RENAL VITAMIN0.8 MG PO (18:40)
== END 2019-08-08 14:15 | disposition home or self-care (01) ==
LOC: ER 11:27
DX: E10.649 Type 1 diabetes mellitus with hypoglycemia without coma (principal); T38.3X5A Adverse effect of insulin and oral hypoglycemic [antidiabetic] drugs, initial encounter; I12.0 Hypertensive chronic kidney disease with stage 5 chronic kidney disease or end stage renal disease; E10.22 Type 1 diabetes mellitus with diabetic chronic kidney disease; N18.6 End stage renal disease; Z79.899 Other long term (current) drug therapy
CPT/HCPCS: 82947; 99285-25

== ENCOUNTER 2019-10-17 19:11 | Emergency (ER) | payer OTHER ==
[~2019-10-17] VITALS: Ht 160 cm; Wt 81.7 kg
[~2019-10-17 19:11] MED LIST changes: +CLONIDINE1 EAC2 TOP; +Carvedilol25 MG PO; +Heartburn Relie20 MG PO; +LEVOFLOXACIN250 MG PO; +RENAL VITAMIN0.8 MG PO; +THERA-D2000 UNIT PO
[2019-10-17] MEDS ORDERED: Sensipar90 MG PO (19:30)
[2019-10-17 19:59] LABS: BASOPHILS ABSOLUTE AUTO 0.02 K/mm3 (0.00-0.23); BASOPHILS PERCENT AUTO 0 % (0-2); EOSINOPHILS ABSOLUTE AUTO 0.19 K/mm3 (0.00-0.68); EOSINOPHILS PERCENT AUTO 4 % (0-6); Hematocrit 26.8 % (33.0-51.0); Hemoglobin 9.3 g/dL (11.5-16.0); IMMATURE GRAN ABSOLUTE AUTO 0.02 K/mm3 (0.00-0.10); IMMATURE GRAN PERCENT AUTO 0 % (0-1); LYMPHOCYTES ABSOLUTE AUTO 1.91 K/mm3 (0.84-5.20); LYMPHOCYTES PERCENT AUTO 37 % (21-46); MONOCYTES ABSOLUTE AUTO 0.47 K/mm3 (0.16-1.47); MONOCYTES PERCENT AUTO 9 % (4-13); Mean Corpuscular HGB Conc 34.7 g/dL (31.5-36.5); Mean Corpuscular Volume 87 fL (80-100); Mean Platelet Volume 8.3 fL (9.1-12.4); NEUTROPHILS ABSOLUTE AUTO 2.59 K/mm3 (1.96-9.15); NEUTROPHILS PERCENT AUTO 50 % (41-73); Platelet Count 212 K/mm3 (150-400); RDW Coefficient Variation 13.6 % (11.7-14.2); RDW Standard Deviation 43.2 fL (35.1-46.3)
[2019-10-17 20:25] LABS: Albumin, Blood 2.9 g/dL (3.4-5.0); Albumin/Globulin Ratio 0.9 (0.8-1.8); Bilirubin, Total 0.2 mg/dL (0.1-1.0); Bun/Creatinine Ratio 8.9 (12.0-20.0); Calcium, Blood 8.8 mg/dL (8.5-10.1); Globulin, Blood 3.2 g/dL (2.2-4.0); Potassium, Blood 5.1 mmol/L (3.5-5.5); Total Protein, Blood 6.1 g/dL (6.4-8.2)
[2019-10-17 20:26] LABS: Creatinine, Blood 16.7 mg/dL (0.40-1.00)
== END 2019-10-17 21:05 | disposition home or self-care (01) ==
LOC: ER 19:11
PROVIDERS: Emergency Medicine
DX: I12.0 Hypertensive chronic kidney disease with stage 5 chronic kidney disease or end stage renal disease (principal); E10.22 Type 1 diabetes mellitus with diabetic chronic kidney disease; N18.6 End stage renal disease; D64.9 Anemia, unspecified; Z99.2 Dependence on renal dialysis; Z79.899 Other long term (current) drug therapy; Z88.8 Allergy status to other drugs, medicaments and biological substances; Z91.048 Other nonmedicinal substance allergy status
CPT/HCPCS: 36415; 80053; 85025; 99283

== ENCOUNTER 2020-04-08 01:44 | Day surgery (SDC) | payer MEDICARE, OTHER ==
[~2020-04-08 01:44] MED LIST changes: +AURYXIA210 MG PO; +CALCITRIOL0.5 MC1 PO; +CATAPRES-TTS 21 EAC1 TOP; +Catapres-Tts 21 EACH TOP; +INSULIN AS100 UNIT/7 UD; +NOVOLOG100 UNIT/3; +Sensipar90 MG PO; -THERA-D2000 UNIT PO; +Vitamin D2000 UNIT PO
--- NOTE | 2020-04-08 15:23 | NUR ---
PT'S BP ELEVATED AFTER TRANSUSION. PT DENIES HARRIS, BLURRED VISION OR OTHER SYMPTOMS. SHE TAKES BP MEDS AND MONITORS HER BP AT HOME. SHE WILL CONTACT DR. BLUNT IF HER BP REMAINS ELEVATED.
== END 2020-04-08 15:20 | disposition home or self-care (01) ==
LOC: ATC 01:44
DX: E10.649 Type 1 diabetes mellitus with hypoglycemia without coma (principal); E10.22 Type 1 diabetes mellitus with diabetic chronic kidney disease; I12.0 Hypertensive chronic kidney disease with stage 5 chronic kidney disease or end stage renal disease; N18.6 End stage renal disease; D63.1 Anemia in chronic kidney disease; Z88.8 Allergy status to other drugs, medicaments and biological substances; Z99.2 Dependence on renal dialysis
CPT/HCPCS: 36415; 36430; 86850; 86900; 86901; 86923; J7050; P9016

== ENCOUNTER 2020-04-29 00:20 | Day surgery (SDC) | payer MEDICARE, OTHER ==
--- NOTE | 2020-04-29 16:48 | NUR ---
HTN: DR BLUNT WAS NOTIFIED RE PT'S BP. CLONIDINE WAS ORDERED AND GIVEN. BP WAS CHECKED P 30 MIN AND REMAINED HIGH DOCUMENTED. THIS RN RECOMMENDED PT GO TO ER, PT DECLINED STATING THAT SHE WOULD CHECK HER BP AT HOME AND GO TO ER IF HTN CONTINUED OR OTHER SYMPTOMS APPEARED. DR BLUNT WAS NOTIFIED.
== END 2020-04-29 16:18 | disposition home or self-care (01) ==
LOC: ATC 00:20
DX: E10.22 Type 1 diabetes mellitus with diabetic chronic kidney disease (principal); E10.65 Type 1 diabetes mellitus with hyperglycemia; I12.0 Hypertensive chronic kidney disease with stage 5 chronic kidney disease or end stage renal disease; N18.6 End stage renal disease; D63.1 Anemia in chronic kidney disease; Z88.8 Allergy status to other drugs, medicaments and biological substances; Z99.2 Dependence on renal dialysis; Z79.899 Other long term (current) drug therapy
CPT/HCPCS: 36415; 36430; 86850; 86900; 86901; 86923; J7050; P9016

== ENCOUNTER 2020-05-12 15:48 | Emergency (ER) | payer MEDICARE, OTHER ==
[~2020-05-12] VITALS: Ht 160 cm; Wt 90.7 kg
[2020-05-12 17:04] LABS: BASOPHILS ABSOLUTE AUTO 0.02 K/mm3 (0.00-0.23); BASOPHILS PERCENT AUTO 0 % (0-2); EOSINOPHILS PERCENT AUTO 4 % (0-6); Hematocrit 27.3 % (33.0-51.0); Hemoglobin 9.1 g/dL (11.5-16.0); IMMATURE GRAN ABSOLUTE AUTO 0.01 K/mm3 (0.00-0.10); IMMATURE GRAN PERCENT AUTO 0 % (0-1); LYMPHOCYTES PERCENT AUTO 10 % (21-46); MONOCYTES ABSOLUTE AUTO 0.42 K/mm3 (0.16-1.47); MONOCYTES PERCENT AUTO 6 % (4-13); Mean Corpuscular HGB 29.7 pg (26.0-34.0); Mean Corpuscular HGB Conc 33.3 g/dL (31.5-36.5); Mean Corpuscular Volume 89 fL (80-100); Mean Platelet Volume 8.9 fL (9.1-12.4); NEUTROPHILS ABSOLUTE AUTO 6.15 K/mm3 (1.96-9.15); NEUTROPHILS PERCENT AUTO 80 % (41-73); Platelet Count 168 K/mm3 (150-400); RDW Coefficient Variation 12.4 % (11.7-14.2); RDW Standard Deviation 40.4 fL (35.1-46.3); Red Blood Cell Count 3.06 M/mm3 (3.80-5.20)
[2020-05-12 17:22] LABS: Magnesium, Blood 2.9 mg/dL (1.6-2.4); Troponin I 0.035 ng/mL (0.000-0.040)
[2020-05-12 17:30] LABS: Albumin, Blood 3.1 g/dL (3.4-5.0); Bilirubin, Total 0.3 mg/dL (0.1-1.0); Bun/Creatinine Ratio 4.7 (12.0-20.0); Calcium, Blood 7.8 mg/dL (8.5-10.1); Globulin, Blood 3.1 g/dL (2.2-4.0); Potassium, Blood 4.1 mmol/L (3.5-5.5); Total Protein, Blood 6.2 g/dL (6.4-8.2)
== END 2020-05-12 19:25 | disposition home or self-care (01) ==
LOC: ER 15:48
PROVIDERS: Emergency Medicine
DX: E10.649 Type 1 diabetes mellitus with hypoglycemia without coma (principal); R56.9 Unspecified convulsions; I13.2 Hypertensive heart and chronic kidney disease with heart failure and with stage 5 chronic kidney disease, or end stage renal disease; E10.22 Type 1 diabetes mellitus with diabetic chronic kidney disease; N18.6 End stage renal disease; Z79.899 Other long term (current) drug therapy; Z91.09 Other allergy status, other than to drugs and biological substances; Z88.8 Allergy status to other drugs, medicaments and biological substances; Z99.2 Dependence on renal dialysis
CPT/HCPCS: 80053; 82947; 83735; 84484; 85025; 93005; 93010; 96361; 96374; 96375; 99285-25; A9270; J2405; J2550

== ENCOUNTER 2020-05-30 22:48 | Observation (INO) | payer MEDICARE, OTHER ==
[~2020-05-30] VITALS: Ht 160 cm; Wt 91.6 kg
[~2020-05-30 22:48] MED LIST changes: +CARV25 PT; +CLON.3 PO; +HYDR10 PO; +Isosorbide Mono30 MG PO; +NIFE60ER PO; +NOVOLOG100 UNIT/3 SC; +RENVELA800 MG PO; +TUMS500 MG PO
[2020-05-30 23:58] LABS: BASOPHILS ABSOLUTE AUTO 0.03 K/mm3 (0.00-0.23); BASOPHILS PERCENT AUTO 1 % (0-2); EOSINOPHILS ABSOLUTE AUTO 0.71 K/mm3 (0.00-0.68); EOSINOPHILS PERCENT AUTO 12 % (0-6); Hematocrit 22.9 % (33.0-51.0); Hemoglobin 7.5 g/dL (11.5-16.0); IMMATURE GRAN ABSOLUTE AUTO 0.01 K/mm3 (0.00-0.10); IMMATURE GRAN PERCENT AUTO 0 % (0-1); LYMPHOCYTES ABSOLUTE AUTO 1.59 K/mm3 (0.84-5.20); LYMPHOCYTES PERCENT AUTO 26 % (21-46); MONOCYTES PERCENT AUTO 8 % (4-13); Mean Corpuscular HGB 29.1 pg (26.0-34.0); Mean Corpuscular HGB Conc 32.8 g/dL (31.5-36.5); Mean Corpuscular Volume 89 fL (80-100); Mean Platelet Volume 8.2 fL (9.1-12.4); NEUTROPHILS ABSOLUTE AUTO 3.31 K/mm3 (1.96-9.15); NEUTROPHILS PERCENT AUTO 54 % (41-73); Platelet Count 165 K/mm3 (150-400); RDW Coefficient Variation 12.6 % (11.7-14.2); RDW Standard Deviation 40.6 fL (35.1-46.3); Red Blood Cell Count 2.58 M/mm3 (3.80-5.20); White Blood Cell Count 6.15 K/mm3 (4.00-11.30)
[2020-05-31 00:25] LABS: Magnesium, Blood 2.9 mg/dL (1.6-2.4)
[2020-05-31 00:37] LABS: Albumin, Blood 2.9 g/dL (3.4-5.0); Albumin/Globulin Ratio 0.9 (0.8-1.8); Bilirubin, Total 0.3 mg/dL (0.1-1.0); Bun/Creatinine Ratio 4.6 (12.0-20.0); Calcium, Blood 7.7 mg/dL (8.5-10.1); Creatinine, Blood 17.1 mg/dL (0.40-1.00); Globulin, Blood 3.1 g/dL (2.2-4.0); Potassium, Blood 4.7 mmol/L (3.5-5.5)
--- NOTE | 2020-05-31 03:55 | NUR ---
30 YR OLD FEMALE ADMITTED TO FLOOR FROM THE ED WITH FLUID RETENTION. PT ON PERITONEAL DIALSIS, BUT VOICED THAT OVER THE PST FEW WEEKS SHE HAS GAINED SOME 22 LBS OF FLUID AND SPOKE WITH HER PCP AND WAS ADMITTED. PD CATH INTACT OF ABD. ALERT AND ORIENTED X 4. ORIENTED TO USE OF CALL LIGHT AND BED CONTROL. AGREES TO USE CALL LIGHT BEFORE ATTEMPTING TO GET OUT OF BED. CALL LIGHT IN REACH.
--- NOTE | 2020-05-31 07:55 | NUR ---
PATIENT ADMITTED TO MED FLOOR LAST EVENING WITH C/O FLUID OVERLOAD IN SPITE OF ROUTINE DAILY CCPD MOST RECENTLY WITH 4.25% DIANEAL. PER CONSULT WITH DR BLUNT AND JADEN CHANDLER, DAY TIME CCPD INITIATED : 6 EXCHANGES x 60 MIN DWELL. PATIENT AESEPTICALLY CONNECTED AND THERAPY STARTED WHEN PRIME COMPLETE. NO VOICED DISCOMFORT WITH PROCEDURES PERFORMED. [facility] FLOOR STAFF AWARE OF DAYTIME CCPD IN PROGRESS.
[2020-05-31 12:33] LABS: BASOPHILS ABSOLUTE AUTO 0.02 K/mm3 (0.00-0.23); BASOPHILS PERCENT AUTO 0 % (0-2); EOSINOPHILS ABSOLUTE AUTO 0.66 K/mm3 (0.00-0.68); EOSINOPHILS PERCENT AUTO 13 % (0-6); Hematocrit 22.6 % (33.0-51.0); Hemoglobin 7.5 g/dL (11.5-16.0); IMMATURE GRAN ABSOLUTE AUTO 0.01 K/mm3 (0.00-0.10); IMMATURE GRAN PERCENT AUTO 0 % (0-1); LYMPHOCYTES ABSOLUTE AUTO 1.42 K/mm3 (0.84-5.20); LYMPHOCYTES PERCENT AUTO 29 % (21-46); MONOCYTES PERCENT AUTO 6 % (4-13); Mean Corpuscular HGB 29.2 pg (26.0-34.0); Mean Corpuscular HGB Conc 33.2 g/dL (31.5-36.5); Mean Corpuscular Volume 88 fL (80-100); Mean Platelet Volume 8.4 fL (9.1-12.4); NEUTROPHILS ABSOLUTE AUTO 2.53 K/mm3 (1.96-9.15); NEUTROPHILS PERCENT AUTO 51 % (41-73); Platelet Count 168 K/mm3 (150-400); RDW Coefficient Variation 12.5 % (11.7-14.2); RDW Standard Deviation 40.1 fL (35.1-46.3); Red Blood Cell Count 2.57 M/mm3 (3.80-5.20); White Blood Cell Count 4.94 K/mm3 (4.00-11.30)
[2020-05-31 12:57] LABS: Albumin, Blood 2.7 g/dL (3.4-5.0); Albumin/Globulin Ratio 0.9 (0.8-1.8); Bilirubin, Total 0.3 mg/dL (0.1-1.0); Bun/Creatinine Ratio 4.5 (12.0-20.0); Creatinine, Blood 17.3 mg/dL (0.40-1.00); Total Protein, Blood 5.7 g/dL (6.4-8.2)
--- NOTE | 2020-05-31 17:00 | NUR ---
SHIFT SUMMARY PT A/O X4 AND IND IN THE ROOM. PT RECEIVED PERITONEAL DIALYSIS TODAY. TELE DC'D. PT MAY BE DISCHARGED TOMORROW. VSS; JEANIE.
--- NOTE | 2020-05-31 17:17 | NUR ---
DAY EXCHANGES COMPLETE. EXCEPTIONAL UF NOTED AT 2.7 LITERS. PATIENT NOTABLY LESS EDEMATOUS THAN THIS AM AT THE START OF THERAPY. DR BLUNT CONSULTED AND ADVISED. ORDERS FOR ESTRELLITA'S OVERNIGHT CCPD NIHARIKA RECEIVED.
--- NOTE | 2020-05-31 18:37 | NUR ---
PATIENT COMFORTABLE IN ROOM WATCHING TV. CYCLER STRUNG , PRIMED AND PROGRAMMED PER DR BLUNT'S RX. WHEN PRIME COMPLETE, PT AESEPTICALLY CONNECTED AND OVERNIGHT CCPD THERAPY STARTED. PATIENT TOOK SHOWER THIS AFTERNOON AND THEN PERFORMED HER OWN DRESSING CHANGE TO EXIT SITE. NO REPORTED ISSUES. MED FLOOR STAFF AWARE OF OVERNIGHT THERAPY IN PROGRESS.
--- NOTE | 2020-05-31 19:11 | NUR ---
AWAKE, AFFECT CHEERFUL. PD IN USE AND FUNCTIONING. DENIED PAIN AND LOSS OF SENSATION. CALL LIGHT IN REACH.
--- NOTE | 2020-06-01 04:22 | NUR ---
SHIFT SUMMARY PT HAS BEEN RESTING QUIETLY WITH FEW INTERRUPTIONS THI SHIFT SINCE HS. PERITONEAL DIALYSIS CONTINUES TO DIALIZE OF THIS WRITING. CALL LIGHT IN REACH. NO NOTED S/S DISTRESS.
[2020-06-01 05:33] LABS: BASOPHILS ABSOLUTE AUTO 0.03 K/mm3 (0.00-0.23); BASOPHILS PERCENT AUTO 1 % (0-2); EOSINOPHILS ABSOLUTE AUTO 0.55 K/mm3 (0.00-0.68); EOSINOPHILS PERCENT AUTO 9 % (0-6); Hematocrit 24.1 % (33.0-51.0); Hemoglobin 7.8 g/dL (11.5-16.0); IMMATURE GRAN ABSOLUTE AUTO 0.01 K/mm3 (0.00-0.10); IMMATURE GRAN PERCENT AUTO 0 % (0-1); LYMPHOCYTES ABSOLUTE AUTO 1.52 K/mm3 (0.84-5.20); LYMPHOCYTES PERCENT AUTO 25 % (21-46); MONOCYTES ABSOLUTE AUTO 0.56 K/mm3 (0.16-1.47); MONOCYTES PERCENT AUTO 9 % (4-13); Mean Corpuscular HGB 28.7 pg (26.0-34.0); Mean Corpuscular HGB Conc 32.4 g/dL (31.5-36.5); Mean Corpuscular Volume 89 fL (80-100); Mean Platelet Volume 8.3 fL (9.1-12.4); NEUTROPHILS ABSOLUTE AUTO 3.35 K/mm3 (1.96-9.15); NEUTROPHILS PERCENT AUTO 56 % (41-73); Platelet Count 186 K/mm3 (150-400); RDW Coefficient Variation 12.4 % (11.7-14.2); RDW Standard Deviation 40.3 fL (35.1-46.3); Red Blood Cell Count 2.72 M/mm3 (3.80-5.20); White Blood Cell Count 6.02 K/mm3 (4.00-11.30)
[2020-06-01 06:19] LABS: Magnesium, Blood 2.8 mg/dL (1.6-2.4)
[2020-06-01 06:22] LABS: Albumin, Blood 2.7 g/dL (3.4-5.0); Anion Gap 10 mmol/L (6-16); Blood Urea Nitrogen 71 mg/dL (8-24); Bun/Creatinine Ratio 4.3 (12.0-20.0); CO2, Blood 29 mmol/L (21-32); Calcium, Blood 7.4 mg/dL (8.5-10.1); Chloride, Blood 96 mmol/L (98-108); Glomerular Filtration Rate 3 (60-); Glucose, Blood 293 mg/dL (70-99); Phosphorus, Blood 5.6 mg/dL (2.5-4.9); Potassium, Blood 4.6 mmol/L (3.5-5.5); Sodium, Blood 135 mmol/L (136-145)
--- NOTE | 2020-06-01 06:56 | NUR ---
PATIENT AWAKE, RESTING IN BED COMFORTABLY. OVERNIGHT CCPD COMPLETE. PT AESEPTICALLY DISCONNECTED AND CAPPED. CYCLER STRIPPED AND CLEANED. DR BLUNT CONSULTED FOR NEW ORDERS / PLAN OF CARE.
--- NOTE | 2020-06-01 16:30 | NUR ---
SHIFT SUMMARY PT A/O X4 AND IND IN THE ROOM. PLEASANT AND COOPERATIVE WITH CARE. CONTINUES TO HAVE HTN. WILL RECEIVE PERITONEAL DIALYSIS TONIGHT AND AGAIN IN THE AM. PT DISPENSES OWN INSULIN VIA PUMP. VSS; JEANIE.
--- NOTE | 2020-06-01 17:43 | NUR ---
PATIENT AWAKE, ALERT, TALKING ON PHONE. NO VERB DISCOMFORT. CYCLER STRUNG, PRIMED AND PROGRAMMED PER DR BLUNT'S ORDERS. WHEN PRIME COMPLETE, PT AESEPTICALLY CONNECTED AND THERAPY STARTED. PATIENT DID HER OWN EXIT SITE CARE PER USUAL ROUTINE. NO ISSUES REPORTED. MED FLOOR STAFF AWARE OF OVERNIGHT THERPY IN PROGRESS.
--- NOTE | 2020-06-01 20:50 | NUR ---
AWAKE, TV ON. TALKING ON PHONE. PERITONEAL DIALYSIS IN USE.CALL LIGHT IN REACH. DENIED PAIN AND NO S/S OF ACUTE DISTRESS. WILL MONITOR
--- NOTE | 2020-06-02 03:01 | NUR ---
SHIFT SUMMARY HAS BEEN RESTING QUIETLY WITH FEW INTERRUPTINS SINCE HS. PERITONEAL DIALYSIS CONTINUES PROGRAMMED. NO NOTED ACUTE DISTRESS. CALL LIGHT IN REACH
[2020-06-02 05:16] LABS: Hematocrit 24.9 % (33.0-51.0); Hemoglobin 8.1 g/dL (11.5-16.0)
[2020-06-02 06:16] LABS: Magnesium, Blood 2.7 mg/dL (1.6-2.4)
[2020-06-02 06:46] LABS: Alanine Aminotransfer (ALT/SGP 15 U/L (12-78); Albumin, Blood 2.7 g/dL (3.4-5.0); Albumin/Globulin Ratio 0.8 (0.8-1.8); Alk Phos 182 U/L (50-136); Anion Gap 8 mmol/L (6-16); Aspartate Aminotrans (AST/SGOT 5 U/L (12-37); Bilirubin, Direct <0.1 mg/dL (0.0-0.3); Bilirubin, Indirect Unable to Calculate mg/dL (0.1-0.7); Bilirubin, Total 0.3 mg/dL (0.1-1.0); Blood Urea Nitrogen 69 mg/dL (8-24); Bun/Creatinine Ratio 4.1 (12.0-20.0); CO2, Blood 30 mmol/L (21-32); Calcium, Blood 7.9 mg/dL (8.5-10.1); Chloride, Blood 95 mmol/L (98-108); Globulin, Blood 3.4 g/dL (2.2-4.0); Glomerular Filtration Rate 3 (60-); Glucose, Blood 341 mg/dL (70-99); Phosphorus, Blood 5.6 mg/dL (2.5-4.9); Potassium, Blood 4.6 mmol/L (3.5-5.5); Sodium, Blood 133 mmol/L (136-145); Total Protein, Blood 6.1 g/dL (6.4-8.2)
--- NOTE | 2020-06-02 08:53 | NUR ---
DIALYSIS-PD PT AWAKE AND ALERT, SITTING UP IN BED WATCHING TV. SHE BELIEVES SHE IS GOING HOME TODAY. TALKED ABOUT HER AND DR BLUNT'S PLAN OF 2 TX A DAY. ID [id number], UF [id number] ML. FLUID CLEAR. PT PLANS ON A SHOWER TODAY, LEFT HER SUPPLIES TO REDRESS HER SITE.
--- NOTE | 2020-06-02 11:51 | NUR ---
DISCHARGE INSTRUCTIONS GIVEN TO PATIENT. ALL QUESTIONS ANSWERED. PATIENT IN ROOM WAITING FOR TRANSPORTATION HOME.
--- NOTE | 2020-06-02 12:00 | NUR ---
PATIENT DISCHARGED HOME @ 1155.
== END 2020-06-02 11:58 | disposition home or self-care (01) ==
LOC: ER 22:48 → MEDS 22:49 → ER 05-31 03:06 → MEDS 05-31 03:16 → ENPENDDIS 06-02 10:35 → MEDS 06-02 11:58
PROVIDERS: Emergency Medicine; Internal Medicine; Internal Medicine Nephrology; ADMIT Internal Medicine
DX: I12.0 Hypertensive chronic kidney disease with stage 5 chronic kidney disease or end stage renal disease (principal); E10.22 Type 1 diabetes mellitus with diabetic chronic kidney disease; N18.6 End stage renal disease; D63.1 Anemia in chronic kidney disease; E10.65 Type 1 diabetes mellitus with hyperglycemia; E87.1 Hypo-osmolality and hyponatremia; E83.39 Other disorders of phosphorus metabolism; E88.09 Other disorders of plasma-protein metabolism, not elsewhere classified; N25.81 Secondary hyperparathyroidism of renal origin; Z99.2 Dependence on renal dialysis; Z79.4 Long term (current) use of insulin; Z96.41 Presence of insulin pump (external) (internal); Z79.899 Other long term (current) drug therapy; Z88.8 Allergy status to other drugs, medicaments and biological substances; Z91.048 Other nonmedicinal substance allergy status; Z51.5 Encounter for palliative care; Z23 Encounter for immunization
CPT/HCPCS: 36415; 71045; 80053; 80069; 82248; 82947; 83735; 83880; 84100; 85014; 85018; 85025; 93005; 93010; 99285-25; A9270-GY; J1644

== ENCOUNTER 2020-06-06 07:45 | Day surgery (SDC) | payer MEDICARE, OTHER | END 2020-06-06 11:15 | disposition home or self-care (01) | LOC: ATC 07:45 | DX: E10.22 Type 1 diabetes mellitus with diabetic chronic kidney disease (principal); E10.65 Type 1 diabetes mellitus with hyperglycemia; I12.0 Hypertensive chronic kidney disease with stage 5 chronic kidney disease or end stage renal disease; D63.1 Anemia in chronic kidney disease; N18.6 End stage renal disease; Z99.2 Dependence on renal dialysis; R11.2 Nausea with vomiting, unspecified; Z79.899 Other long term (current) drug therapy; Z88.8 Allergy status to other drugs, medicaments and biological substances | CPT/HCPCS: 36415; 36430; 86850; 86900; 86901; 86923; J7050; P9016 ==

== ENCOUNTER 2020-08-29 11:15 | Day surgery (SDC) | payer OTHER | END 2020-08-29 16:30 | disposition home or self-care (01) | LOC: ATC 11:15 | DX: E10.22 Type 1 diabetes mellitus with diabetic chronic kidney disease (principal); E10.65 Type 1 diabetes mellitus with hyperglycemia; I12.0 Hypertensive chronic kidney disease with stage 5 chronic kidney disease or end stage renal disease; N18.6 End stage renal disease; D63.1 Anemia in chronic kidney disease; R11.2 Nausea with vomiting, unspecified; Z99.2 Dependence on renal dialysis; Z79.899 Other long term (current) drug therapy; Z79.4 Long term (current) use of insulin; Z88.8 Allergy status to other drugs, medicaments and biological substances; Z91.048 Other nonmedicinal substance allergy status; Z88.5 Allergy status to narcotic agent; Z29.8 Encounter for other specified prophylactic measures | CPT/HCPCS: 36415; 36430; 86850; 86900; 86901; 86923; J7050; P9016 ==

== ENCOUNTER 2020-09-17 16:29 | Emergency (ER) | payer OTHER ==
[~2020-09-17] VITALS: Ht 160 cm; Wt 86.2 kg
[2020-09-17 17:16] LABS: BASOPHILS ABSOLUTE AUTO 0.02 K/mm3 (0.00-0.23); BASOPHILS PERCENT AUTO 0 % (0-2); EOSINOPHILS ABSOLUTE AUTO 0.25 K/mm3 (0.00-0.68); EOSINOPHILS PERCENT AUTO 4 % (0-6); Hemoglobin 6.3 g/dL (11.5-16.0); IMMATURE GRAN ABSOLUTE AUTO 0.07 K/mm3 (0.00-0.10); IMMATURE GRAN PERCENT AUTO 1 % (0-1); LYMPHOCYTES ABSOLUTE AUTO 1.55 K/mm3 (0.84-5.20); LYMPHOCYTES PERCENT AUTO 22 % (21-46); MONOCYTES ABSOLUTE AUTO 0.46 K/mm3 (0.16-1.47); MONOCYTES PERCENT AUTO 7 % (4-13); Mean Corpuscular HGB 29.3 pg (26.0-34.0); Mean Corpuscular HGB Conc 33.2 g/dL (31.5-36.5); Mean Corpuscular Volume 88 fL (80-100); Mean Platelet Volume 9.1 fL (9.1-12.4); NEUTROPHILS ABSOLUTE AUTO 4.56 K/mm3 (1.96-9.15); NEUTROPHILS PERCENT AUTO 66 % (41-73); Platelet Count 217 K/mm3 (150-400); RDW Coefficient Variation 13.2 % (11.7-14.2); RDW Standard Deviation 42.4 fL (35.1-46.3); Red Blood Cell Count 2.15 M/mm3 (3.80-5.20); White Blood Cell Count 6.91 K/mm3 (4.00-11.30)
[2020-09-17 17:46] LABS: Alanine Aminotransfer (ALT/SGP <6 U/L (12-78); Albumin, Blood 2.7 g/dL (3.4-5.0); Albumin/Globulin Ratio 0.8 (0.8-1.8); Alk Phos 164 U/L (50-136); Anion Gap 9 mmol/L (6-16); Aspartate Aminotrans (AST/SGOT 3 U/L (12-37); Bilirubin, Total 0.2 mg/dL (0.1-1.0); Blood Urea Nitrogen 60 mg/dL (8-24); Bun/Creatinine Ratio 4.2 (12.0-20.0); CO2, Blood 27 mmol/L (21-32); Calcium, Blood 8.7 mg/dL (8.5-10.1); Chloride, Blood 93 mmol/L (98-108); Globulin, Blood 3.3 g/dL (2.2-4.0); Glomerular Filtration Rate 3 (60-); Glucose, Blood 278 mg/dL (70-99); Potassium, Blood 4.2 mmol/L (3.5-5.5); Sodium, Blood 129 mmol/L (136-145)
[2020-09-17] MEDS ORDERED: ESCI10 PO (18:09)
== END 2020-09-17 20:23 | disposition home or self-care (01) ==
LOC: ER 16:29
PROVIDERS: Physician Assistant
DX: D64.9 Anemia, unspecified (principal); E87.1 Hypo-osmolality and hyponatremia; E10.22 Type 1 diabetes mellitus with diabetic chronic kidney disease; N18.6 End stage renal disease; Z79.899 Other long term (current) drug therapy; Z99.2 Dependence on renal dialysis; Z79.4 Long term (current) use of insulin; Z88.8 Allergy status to other drugs, medicaments and biological substances
CPT/HCPCS: 36415; 36430; 80053; 85025; 86850; 86900; 86901; 86923; 93005; 93010; 99283-25; J7030; P9016

== ENCOUNTER 2020-09-18 00:24 | Day surgery (SDC) | payer OTHER ==
[~2020-09-18 00:24] MED LIST changes: +ESCI10 PO
== END 2020-09-18 11:03 | disposition home or self-care (01) ==
LOC: ATC 00:24
DX: I12.0 Hypertensive chronic kidney disease with stage 5 chronic kidney disease or end stage renal disease (principal); E10.22 Type 1 diabetes mellitus with diabetic chronic kidney disease; N18.6 End stage renal disease; D63.1 Anemia in chronic kidney disease; E10.65 Type 1 diabetes mellitus with hyperglycemia; D50.0 Iron deficiency anemia secondary to blood loss (chronic); N92.0 Excessive and frequent menstruation with regular cycle; R11.2 Nausea with vomiting, unspecified; Z99.2 Dependence on renal dialysis; Z79.899 Other long term (current) drug therapy; Z79.4 Long term (current) use of insulin; Z88.8 Allergy status to other drugs, medicaments and biological substances; Z91.048 Other nonmedicinal substance allergy status; Z88.5 Allergy status to narcotic agent; Z29.8 Encounter for other specified prophylactic measures
CPT/HCPCS: 36430; 86850; 86900; 86901; 86923; J7050; P9016

== ENCOUNTER 2020-09-19 09:27 | Day surgery (SDC) | payer OTHER ==
[~2020-09-19] VITALS: Ht 160 cm; Wt 85.7 kg
[2020-09-19 09:56] LABS: BASOPHILS ABSOLUTE AUTO 0.02 K/mm3 (0.00-0.23); BASOPHILS PERCENT AUTO 0 % (0-2); EOSINOPHILS ABSOLUTE AUTO 0.32 K/mm3 (0.00-0.68); EOSINOPHILS PERCENT AUTO 5 % (0-6); Hematocrit 24.6 % (33.0-51.0); Hemoglobin 8.1 g/dL (11.5-16.0); IMMATURE GRAN ABSOLUTE AUTO 0.08 K/mm3 (0.00-0.10); IMMATURE GRAN PERCENT AUTO 1 % (0-1); LYMPHOCYTES ABSOLUTE AUTO 1.71 K/mm3 (0.84-5.20); LYMPHOCYTES PERCENT AUTO 29 % (21-46); MONOCYTES ABSOLUTE AUTO 0.51 K/mm3 (0.16-1.47); MONOCYTES PERCENT AUTO 9 % (4-13); Mean Corpuscular HGB 28.8 pg (26.0-34.0); Mean Corpuscular HGB Conc 32.9 g/dL (31.5-36.5); Mean Corpuscular Volume 88 fL (80-100); Mean Platelet Volume 8.8 fL (9.1-12.4); NEUTROPHILS ABSOLUTE AUTO 3.28 K/mm3 (1.96-9.15); NEUTROPHILS PERCENT AUTO 55 % (41-73); NRBC ABSOLUTE 0.05 K/mm3 (0.00-0.02); NRBC Auto 0.8 /100 WBC (0.0-0.2); Platelet Count 197 K/mm3 (150-400); RDW Coefficient Variation 14.4 % (11.7-14.2); RDW Standard Deviation 46.2 fL (35.1-46.3); Red Blood Cell Count 2.81 M/mm3 (3.80-5.20); White Blood Cell Count 5.92 K/mm3 (4.00-11.30)
[2020-09-19 10:22] LABS: Bun/Creatinine Ratio 4.3 (12.0-20.0); Calcium, Blood 8.4 mg/dL (8.5-10.1); Creatinine, Blood 14.4 mg/dL (0.40-1.00); Potassium, Blood 3.8 mmol/L (3.5-5.5)
--- NOTE | 2020-09-19 10:27 | NUR ---
09/19/20 1027 Marylou Prado CRITICAL CREATININE 14.4 CALLED [address] [facility]. DR. MATHEWS AND DR. NUNEZLY NOTIFIED. NO NEW ORDERS.
--- NOTE | 2020-09-19 11:48 | NUR ---
09/19/20 1148 Awa Muniz V PT REPORTS PAIN IN LOWER ABDOMEN/PELVIC AREA, FOR WHICH SHE HAS BEEN MEDICATED PER ORDERS.
== END 2020-09-19 13:09 | disposition home or self-care (01) ==
LOC: ORSCSDS 09:27
PROVIDERS: Obstetrics & Gynecology
PROC: 0UDB8ZX Extraction of Endometrium, Via Natural or Artificial Opening Endoscopic, Diagnostic (ICD-10-PCS; principal; 2020-09-19 10:30)
PROC: 0U5B8ZZ Destruction of Endometrium, Via Natural or Artificial Opening Endoscopic (ICD-10-PCS; principal; 2020-09-19 10:30)
DX: N92.0 Excessive and frequent menstruation with regular cycle (principal); N84.0 Polyp of corpus uteri; D50.0 Iron deficiency anemia secondary to blood loss (chronic); N18.6 End stage renal disease; E10.9 Type 1 diabetes mellitus without complications; I10 Essential (primary) hypertension; K21.9 Gastro-esophageal reflux disease without esophagitis; Z79.4 Long term (current) use of insulin; Z79.899 Other long term (current) drug therapy; E66.9 Obesity, unspecified; Z68.33 Body mass index [BMI] 33.0-33.9, adult
CPT/HCPCS: 36415; 80048; 82947; 85025; 88305; A9270; J0690; J1100; J2250; J2405; J2704; J3010; J7030

== ENCOUNTER 2020-10-31 10:28 | Inpatient (IN) | payer OTHER, MEDICARE ==
[~2020-10-31] VITALS: Ht 160 cm; Wt 90.7 kg
[2020-10-31 11:59] LABS: BASOPHILS ABSOLUTE AUTO 0.03 K/mm3 (0.00-0.23); BASOPHILS PERCENT AUTO 1 % (0-2); EOSINOPHILS ABSOLUTE AUTO 0.29 K/mm3 (0.00-0.68); EOSINOPHILS PERCENT AUTO 6 % (0-6); Hematocrit 24.2 % (33.0-51.0); Hemoglobin 8.3 g/dL (11.5-16.0); IMMATURE GRAN ABSOLUTE AUTO 0.01 K/mm3 (0.00-0.10); IMMATURE GRAN PERCENT AUTO 0 % (0-1); LYMPHOCYTES ABSOLUTE AUTO 1.23 K/mm3 (0.84-5.20); LYMPHOCYTES PERCENT AUTO 24 % (21-46); MONOCYTES ABSOLUTE AUTO 0.36 K/mm3 (0.16-1.47); MONOCYTES PERCENT AUTO 7 % (4-13); Mean Corpuscular HGB 30.2 pg (26.0-34.0); Mean Corpuscular HGB Conc 34.3 g/dL (31.5-36.5); Mean Corpuscular Volume 88 fL (80-100); Mean Platelet Volume 9.1 fL (9.1-12.4); NEUTROPHILS ABSOLUTE AUTO 3.32 K/mm3 (1.96-9.15); NEUTROPHILS PERCENT AUTO 63 % (41-73); Platelet Count 122 K/mm3 (150-400); RDW Coefficient Variation 13.2 % (11.7-14.2); RDW Standard Deviation 40.9 fL (35.1-46.3); Red Blood Cell Count 2.75 M/mm3 (3.80-5.20); White Blood Cell Count 5.24 K/mm3 (4.00-11.30)
[2020-10-31 12:29] LABS: Albumin, Blood 3.3 g/dL (3.4-5.0); Bilirubin, Total 0.3 mg/dL (0.1-1.0); Bun/Creatinine Ratio 4.7 (12.0-20.0); Calcium, Blood 7.9 mg/dL (8.5-10.1); Creatinine, Blood 14.3 mg/dL (0.40-1.00); Globulin, Blood 3.4 g/dL (2.2-4.0); Potassium, Blood 4.4 mmol/L (3.5-5.5); Total Protein, Blood 6.7 g/dL (6.4-8.2)
[2020-10-31] MEDS ORDERED: CIPR250 PO (12:38)
[2020-10-31] MEDS ORDERED: TEMA15 PO (12:39)
[2020-10-31] MEDS ORDERED: NOVOLOG100 UNIT/2 (12:45)
[2020-10-31] MEDS ORDERED: ZOFRAN4 MG PO (12:45)
[2020-10-31] MEDS ORDERED: Isosorbide Dini30 MG PO (12:45)
[2020-10-31] MEDS ORDERED: RENVELA800 MG PO (12:46)
[2020-10-31 19:24] LABS: Influenza A, PCR NEGATIVE (NEGATIVE); Influenza B, PCR NEGATIVE (NEGATIVE); Resp Syncytial Virus, PCR NEGATIVE (NEGATIVE); SARS-Cov-2 (COVID-19) PCR, MMC NEGATIVE (NEGATIVE)
[2020-11-01 04:10] LABS: BASOPHILS ABSOLUTE AUTO 0.01 K/mm3 (0.00-0.23); BASOPHILS PERCENT AUTO 0 % (0-2); EOSINOPHILS ABSOLUTE AUTO 0.36 K/mm3 (0.00-0.68); EOSINOPHILS PERCENT AUTO 6 % (0-6); Hematocrit 21.3 % (33.0-51.0); Hemoglobin 7.2 g/dL (11.5-16.0); IMMATURE GRAN ABSOLUTE AUTO 0.02 K/mm3 (0.00-0.10); IMMATURE GRAN PERCENT AUTO 0 % (0-1); LYMPHOCYTES ABSOLUTE AUTO 1.83 K/mm3 (0.84-5.20); LYMPHOCYTES PERCENT AUTO 32 % (21-46); MONOCYTES ABSOLUTE AUTO 0.44 K/mm3 (0.16-1.47); MONOCYTES PERCENT AUTO 8 % (4-13); Mean Corpuscular HGB 30.1 pg (26.0-34.0); Mean Corpuscular HGB Conc 33.8 g/dL (31.5-36.5); Mean Corpuscular Volume 89 fL (80-100); Mean Platelet Volume 8.9 fL (9.1-12.4); NEUTROPHILS ABSOLUTE AUTO 2.98 K/mm3 (1.96-9.15); NEUTROPHILS PERCENT AUTO 53 % (41-73); Platelet Count 113 K/mm3 (150-400); RDW Coefficient Variation 13.2 % (11.7-14.2); RDW Standard Deviation 42.6 fL (35.1-46.3); Red Blood Cell Count 2.39 M/mm3 (3.80-5.20); White Blood Cell Count 5.64 K/mm3 (4.00-11.30)
--- NOTE | 2020-11-01 04:34 | NUR ---
SHIFT SUMMARY PT AOX4. INDEPENDENT IN ROOM. NPO AT MIDNIGHT. ANTICIPATING SURGERY FOR SHAHAB FOR PERMCATH PLACEMENT. PT IS DIABETIC, MANAGED WITH HOME INSULIN PUMP. CBG AT 51 2309. APPLE JUICE WAS OFFERED. CGB RECHECKED AFTER AN HOUR. IMPROVED AT 97 AT 2355 AND 125 AT 0337. PT SLEPT T/O SHIFT. DENIES PAIN, NAUSEA, VOMITING, CHILLS AND SWEATS. CALL LIGHT WITHIN REACH.
[2020-11-01 04:47] LABS: Magnesium, Blood 2.6 mg/dL (1.6-2.4)
[2020-11-01 04:58] LABS: Albumin, Blood 2.5 g/dL (3.4-5.0); Albumin/Globulin Ratio 0.9 (0.8-1.8); Bilirubin, Total 0.5 mg/dL (0.1-1.0); Bun/Creatinine Ratio 4.7 (12.0-20.0); Calcium, Blood 7.5 mg/dL (8.5-10.1); Creatinine, Blood 15.9 mg/dL (0.40-1.00); Globulin, Blood 2.9 g/dL (2.2-4.0); Phosphorus, Blood 6.8 mg/dL (2.5-4.9); Potassium, Blood 4.2 mmol/L (3.5-5.5); Total Protein, Blood 5.4 g/dL (6.4-8.2)
--- NOTE | 2020-11-01 14:19 | NUR ---
PT HAVING BEEN NPO SINCE MIDNIGHT, PT TURNED OFF HER INSULIN PUMP AFTER 54 CBG AT 1110, RECHECK BLOOD GLUCOSE 258, PT INFUSED 2.1 INSULIN.
--- NOTE | 2020-11-01 19:36 | NUR ---
SHIFT SUMMARY PT A&OX4, VSS, PLAN FOR O.R. FOR PERMACATH PLACEMENT IN AM, NPO AT MIDNIGHT. DENIES PAIN. GLUCOSE MANAGED WITH INSULIN PUMP, CBGS AC/HS. INDEPENDENT IN ROOM. TONA PO, DENIES N&V. REPORT PROVIDED TO FLAKITA PHILLIPS.
--- NOTE | 2020-11-01 21:08 | NUR ---
GLUCOSE AT 49. PT'S GLUCOSE AT 49, PT TURNED OFF HER INSULIN PUMP. REPORTS THAT SHE HAS BEEN RUNNING LOW AT NIGHT. PT REPORTS THAT SHE USUALLY DOES HER DIALYSIS AT HOME AT NIGHT. LOW GLUCOSE HAS BEEN HAPPENING SINCE SHE STOPPED HER DIALYSIS. OFFERED 2 APPLE JUICE. REPORTED CHANGES TO SOLUTION MAKER JOSH. PT IS ASYMPTOMATIC. AOX4. RECHECKED CBG IN 30 MINS. IMPROVED AT 65. WILL CONTINUE TO MONITOR AND RECHECK CBG.
--- NOTE | 2020-11-02 03:21 | NUR ---
SHIFT SUMMARY PT AOX4. INDEPENDENT IN ROOM. CRITICALLY LOW FOR CBG LAST NIGHT AT 49. PT WAS ASYMPTOMATIC. NOTIFIED CHARGE NURSE ANGELA. OFFERED 2 APPLE JUICE. CBG IMPROVED. PT ALSO REFUSE TO TAKE BP MEDS. BP AT 114/57. WILL CONTINUE TO MONITOR CBG AND BP T/O SHIFT. PT DENIES PAIN, NAUSEA AND VOMITING. TONA PO INTAKE, NPO AT MIDNIGHT FOR PERMCATH PLACEMENT THIS MORNING. CALL LIGHT WITHIN REACH. WILL PROVIDE AN UPDATE FOR THE ONCOMING AM NURSE.
[2020-11-02 04:31] LABS: BASOPHILS ABSOLUTE AUTO 0.01 K/mm3 (0.00-0.23); BASOPHILS PERCENT AUTO 0 % (0-2); EOSINOPHILS ABSOLUTE AUTO 0.34 K/mm3 (0.00-0.68); EOSINOPHILS PERCENT AUTO 5 % (0-6); Hematocrit 21.8 % (33.0-51.0); Hemoglobin 7.4 g/dL (11.5-16.0); IMMATURE GRAN ABSOLUTE AUTO 0.02 K/mm3 (0.00-0.10); IMMATURE GRAN PERCENT AUTO 0 % (0-1); LYMPHOCYTES ABSOLUTE AUTO 1.49 K/mm3 (0.84-5.20); LYMPHOCYTES PERCENT AUTO 22 % (21-46); MONOCYTES ABSOLUTE AUTO 0.52 K/mm3 (0.16-1.47); MONOCYTES PERCENT AUTO 8 % (4-13); Mean Corpuscular HGB 30.2 pg (26.0-34.0); Mean Corpuscular HGB Conc 33.9 g/dL (31.5-36.5); Mean Corpuscular Volume 89 fL (80-100); Mean Platelet Volume 9.3 fL (9.1-12.4); NEUTROPHILS ABSOLUTE AUTO 4.55 K/mm3 (1.96-9.15); NEUTROPHILS PERCENT AUTO 66 % (41-73); Platelet Count 128 K/mm3 (150-400); RDW Coefficient Variation 13.4 % (11.7-14.2); RDW Standard Deviation 42.7 fL (35.1-46.3); Red Blood Cell Count 2.45 M/mm3 (3.80-5.20); White Blood Cell Count 6.93 K/mm3 (4.00-11.30)
[2020-11-02 04:59] LABS: Magnesium, Blood 2.7 mg/dL (1.6-2.4)
[2020-11-02 05:08] LABS: Albumin, Blood 2.5 g/dL (3.4-5.0); Anion Gap 10 mmol/L (6-16); Blood Urea Nitrogen 80 mg/dL (8-24); Bun/Creatinine Ratio 4.4 (12.0-20.0); CO2, Blood 28 mmol/L (21-32); Chloride, Blood 91 mmol/L (98-108); Glomerular Filtration Rate 2 (60-); Glucose, Blood 175 mg/dL (70-99); Phosphorus, Blood 4.8 mg/dL (2.5-4.9); Potassium, Blood 4.2 mmol/L (3.5-5.5); Sodium, Blood 129 mmol/L (136-145)
--- NOTE | 2020-11-02 10:42 | NUR ---
LINE PLACEMENT A LITTLE HIGH AND NEAR THE SVC PER MICHAELA/ DR DURBIN I CALLED DR DE LA VEGA AND LET HIM KNOW THIS HE HAS NO NEW ORDERS
--- NOTE | 2020-11-02 10:47 | NUR ---
TO DIALYSIS PER GARRET FROM PACU
--- NOTE | 2020-11-02 15:58 | NUR ---
SHIFT SUMMARY PT A&OX4, VSS/RA, TONA PO/DENIES N&V, INDEPENDENT IN ROOM, ANURIA. S/P PERMACATH PLACEMENT, BANDAGE CDI; DIALYSIS WILL CHANGE BANDAGE TOMORROW 11/03. DIALYSIS TODAY WITH 3600 OFF; PLAN FOR DIALYSIS AGAIN TOMORROW. WILL REPORT TO ONCOMING NOC RN.
[2020-11-03 05:10] LABS: BASOPHILS ABSOLUTE AUTO 0.02 K/mm3 (0.00-0.23); BASOPHILS PERCENT AUTO 0 % (0-2); EOSINOPHILS ABSOLUTE AUTO 0.02 K/mm3 (0.00-0.68); EOSINOPHILS PERCENT AUTO 0 % (0-6); Hematocrit 21.2 % (33.0-51.0); Hemoglobin 7.1 g/dL (11.5-16.0); IMMATURE GRAN ABSOLUTE AUTO 0.04 K/mm3 (0.00-0.10); IMMATURE GRAN PERCENT AUTO 1 % (0-1); LYMPHOCYTES PERCENT AUTO 17 % (21-46); MONOCYTES ABSOLUTE AUTO 0.58 K/mm3 (0.16-1.47); MONOCYTES PERCENT AUTO 9 % (4-13); Mean Corpuscular HGB 30.7 pg (26.0-34.0); Mean Corpuscular HGB Conc 33.5 g/dL (31.5-36.5); Mean Corpuscular Volume 92 fL (80-100); Mean Platelet Volume 9.7 fL (9.1-12.4); NEUTROPHILS PERCENT AUTO 73 % (41-73); Platelet Count 126 K/mm3 (150-400); RDW Coefficient Variation 13.2 % (11.7-14.2); RDW Standard Deviation 42.4 fL (35.1-46.3); Red Blood Cell Count 2.31 M/mm3 (3.80-5.20); White Blood Cell Count 6.56 K/mm3 (4.00-11.30)
[2020-11-03 05:40] LABS: Magnesium, Blood 2.3 mg/dL (1.6-2.4)
[2020-11-03 05:45] LABS: Albumin, Blood 2.3 g/dL (3.4-5.0); Anion Gap 6 mmol/L (6-16); Blood Urea Nitrogen 43 mg/dL (8-24); Bun/Creatinine Ratio 3.8 (12.0-20.0); CO2, Blood 28 mmol/L (21-32); Calcium, Blood 7.3 mg/dL (8.5-10.1); Chloride, Blood 96 mmol/L (98-108); Glomerular Filtration Rate 4 (60-); Glucose, Blood 433 mg/dL (70-99); Phosphorus, Blood 3.5 mg/dL (2.5-4.9); Potassium, Blood 5.1 mmol/L (3.5-5.5); Sodium, Blood 130 mmol/L (136-145)
--- NOTE | 2020-11-03 06:09 | NUR ---
SHIFT SUMMARY: JOHN IS A&OX4, INDEPENDENT IN THE ROOM. VSS, NO ACUTE EVENTS OVERNIGHT. SHE IS TOLERATING PO INTAKE WELL, MINDFUL OF FLUID INTAKE. DENIES PAIN, N OR V. MANAGING SUGARS WITH HER INSULIN PUMP, USES THE CALL LIGHT APPROPRIATELY. SHE IS LYING IN BED WITH THE CALL LIGHT IN REACH. WILL REPORT TO DAY SHIFT RN.
--- NOTE | 2020-11-03 09:53 | NUR ---
PT IN DIALYSIS.
[2020-11-03] MEDS ORDERED: ACET325 PO (14:40)
[2020-11-03] MEDS ORDERED: BISA10S PR (14:41)
[2020-11-03] MEDS ORDERED: FAMO20 PO (14:42)
--- NOTE | 2020-11-03 15:01 | NUR ---
DC'D HOME, DC INSTRUCTIONS GIVEN, VERBALIZED UNDERSTANDING, PT WAS IN DIALYSIS MOST OF AM, BP MEDS HELD THIS AM PER MANUFACTURING INTERN, PT REFUSED TO TAKE MEDS AFTER DIALYSIS, ANXIOUS TO GO HOME, STATES SHE WILL TAKE HER MEDS AT HOME.
== END 2020-11-03 15:15 | disposition home or self-care (01) | DRG 673 ==
LOC: ER 10:28 → MEDS 15:28 → SURS 15:28
PROVIDERS: Internal Medicine Nephrology; Physician Assistant; Surgery; ADMIT Family Medicine
PROC: 02HV33Z Insertion of Infusion Device into Superior Vena Cava, Percutaneous Approach (ICD-10-PCS; 2020-11-02)
PROC: B548ZZA Ultrasonography of Superior Vena Cava, Guidance (ICD-10-PCS; 2020-11-02)
PROC: 5A1D70Z Performance of Urinary Filtration, Intermittent, Less than 6 Hours Per Day (ICD-10-PCS; 2020-11-02)
PROC: 0JH63XZ Insertion of Tunneled Vascular Access Device into Chest Subcutaneous Tissue and Fascia, Percutaneous Approach (ICD-10-PCS; principal; 2020-11-02 09:00)
DX: I12.0 Hypertensive chronic kidney disease with stage 5 chronic kidney disease or end stage renal disease (principal); N18.6 End stage renal disease; T85.691A Other mechanical complication of intraperitoneal dialysis catheter, initial encounter; N25.81 Secondary hyperparathyroidism of renal origin; E87.1 Hypo-osmolality and hyponatremia; Z20.822 Contact with and (suspected) exposure to COVID-19; E10.22 Type 1 diabetes mellitus with diabetic chronic kidney disease; D63.1 Anemia in chronic kidney disease; E83.39 Other disorders of phosphorus metabolism; I25.10 Atherosclerotic heart disease of native coronary artery without angina pectoris; F32.9 Major depressive disorder, single episode, unspecified; Z91.048 Other nonmedicinal substance allergy status; Z98.890 Other specified postprocedural states; Z99.2 Dependence on renal dialysis; Z90.89 Acquired absence of other organs; Z98.51 Tubal ligation status; Z79.899 Other long term (current) drug therapy; Z79.4 Long term (current) use of insulin; Y84.8 Other medical procedures as the cause of abnormal reaction of the patient, or of later complication, without mention of misadventure at the time of the procedure
CPT/HCPCS: 0241U; 36415; 80053; 80069; 82947; 83735; 84100; 84443; 85025; 93005; 93010; 99285-25; A9270; C1750; J0690; J0881; J1100; J1644; J1815; J2405; J2704; J2765; J3010

== ENCOUNTER 2020-11-12 10:55 | Day surgery (SDC) | payer OTHER ==
[~2020-11-12] VITALS: Ht 160 cm; Wt 87.5 kg
[~2020-11-12 10:55] MED LIST changes: +BISA10S PR; +CIPR250 PO; +FAMO20 PO; +Isosorbide Dini30 MG PO; +NOVOLOG100 UNIT/2; +TEMA15 PO; +ZOFRAN4 MG PO
[2020-11-12 13:47] LABS: Calcium, Blood 8.1 mg/dL (8.5-10.1); Potassium, Blood 4.6 mmol/L (3.5-5.5)
[2020-11-12 13:59] LABS: Bun/Creatinine Ratio 3.7 (12.0-20.0); Creatinine, Blood 11.6 mg/dL (0.40-1.00)
--- NOTE | 2020-11-12 14:31 | NUR ---
PATIENT RETURNED FROM THE CATHLAB S/P PD CATHETER EXCHANGE BY DR. TIWARI. PLACED ON THE MONITOR, VVS, NO PAIN NOTED. SLEEPY BUT WAKES EASILY. CALL LIGHT IN REACH AND SIDE RAILS UP X TWO.
--- NOTE | 2020-11-12 15:07 | NUR ---
PATIENT WAKES EASILY AND SITTING UP IN THE BED EATING LUNCH TRAY. DRESSING TO THE ABDOMEN PD CATHETER CDI. PATIENT ALREADY BEEN DOING PD DIALYSIS, NO FURTHER TEACHING NEEDED.
--- NOTE | 2020-11-12 15:35 | NUR ---
6072 PATIENT UP ADN DRESSED. VVS. MOTHER IS PROVIDING RIDE HOME. REVIEWED ALL DISCHARGE INSTRUCTIONS TO PATIENT AND NO FURTHER QUESTIONS. NO PAIN NOTED. DRESSING TO ABDOMEN CDI. DISCAHRGED HOME AMBULATORY TO DIALYSIS/HOME.
== END 2020-11-12 15:35 | disposition home or self-care (01) ==
LOC: MHTC 10:55
PROVIDERS: Radiology Diagnostic Radiology
DX: T85.691A Other mechanical complication of intraperitoneal dialysis catheter, initial encounter (principal); I12.0 Hypertensive chronic kidney disease with stage 5 chronic kidney disease or end stage renal disease; E10.22 Type 1 diabetes mellitus with diabetic chronic kidney disease; N18.6 End stage renal disease; Z99.2 Dependence on renal dialysis; E10.40 Type 1 diabetes mellitus with diabetic neuropathy, unspecified; Z86.14 Personal history of Methicillin resistant Staphylococcus aureus infection; Z88.8 Allergy status to other drugs, medicaments and biological substances
CPT/HCPCS: 49418; 49422; 80048; 99152; 99153; C1750; C1769; C1894; J0690; J2250; J3010; J7030; J7040

== ENCOUNTER 2020-12-01 10:31 | Day surgery (SDC) | payer OTHER ==
[~2020-12-01] VITALS: Ht 160 cm; Wt 84.4 kg
--- NOTE | 2020-12-01 17:35 | NUR ---
HYDRALAZINE HYRALAZINE 10MG IV GIVEN.
--- NOTE | 2020-12-01 18:49 | NUR ---
DISCHARGE PT DRESSED SELF WITH NO COMPLICATIONS. PT REPORTS SOME TENDERNESS AT PERM CATH SITE BUT IS TOLERABLE PER PT. PTS BP UNDER CONTROL PRIOR TO DC. NO BLEEDING , OOZING OR HEMATOMA NOTED AT PERM CATH SITE. CLEAN SPLIT GAUZE APPLIED ALONG WITH TWO NEW CLOTH DOT DRESSINGS APPLIED TO SITE. PT AND BOTH DENY ANY QUESTIONS OR CONCERNS WITH SITE MANAGEMENT OR DC INSTRUCTIONS. PTS HD CATH DRESSING REMAINS C/D/I. IV DCD WITH CATH INTACT. PT TAKEN TO EXIT VIA WHEELCHAIR WHERE WAS WAITING WITH VEHICLE.
== END 2020-12-01 23:03 | disposition home or self-care (01) ==
LOC: MHTC 10:31
DX: I12.0 Hypertensive chronic kidney disease with stage 5 chronic kidney disease or end stage renal disease (principal); E10.22 Type 1 diabetes mellitus with diabetic chronic kidney disease; N18.6 End stage renal disease; E10.40 Type 1 diabetes mellitus with diabetic neuropathy, unspecified; D64.9 Anemia, unspecified; Z86.14 Personal history of Methicillin resistant Staphylococcus aureus infection; Z88.8 Allergy status to other drugs, medicaments and biological substances
CPT/HCPCS: 36558; 36589; 49400; 74190; 76937; 77001; 99152; 99153; A9270; C1750; C1769; C1894; J0360; J1644; J2250; J3010; J7030; J7040; J7050; Q9967

== ENCOUNTER 2021-07-13 09:50 | Day surgery (SDC) | payer OTHER ==
[~2021-07-13] VITALS: Ht 160 cm; Wt 80.0 kg
--- NOTE | 2021-07-13 12:09 | NUR ---
PATIENT RETURNS FROM THE CATHLAB S/P PERITONEAL HD CATH REMOVAL. DRESSING TO THE RIGHT SIDE OF THE ABDONEM. CDI. NO BLEEDING NOTED. PAIN 0 /10 NOTED. PATIENT PLACED ON THE MONITOR AND SIDE RAILS UP X 2. CALL LIGHT IN REACH. VVS. SBAR RECEIVED FROM JACQUELINE MILLER.
--- NOTE | 2021-07-13 12:19 | NUR ---
PATIENT SAT UP IN THE BED AND AND LUNCH TRAY SERVED. NO PAIN NOTED AND ENCOURAGED TO SLOWLY EAT DUE TO RECENT SEDATION MEDS.
--- NOTE | 2021-07-13 12:51 | NUR ---
PATIENT UP AND DRESSED. OFF THE MONITOR. PIV REMOVED AND PRESSURE DRESSING APPLIED. REVIEWED DISCHARGE INSTRUCTIONS AND SIGNATURES OBTAINED. COPIES GIVEN TO THE PATIENT. ALL BELONGINGS RETAINED BY THE PAT[facility] AND [facility] [place] [facility] TO MEET FOR DISCAHRGE HOME.
== END 2021-07-13 12:55 | disposition home or self-care (01) ==
LOC: MHTC 09:50
DX: T85.898A Other specified complication of other internal prosthetic devices, implants and grafts, initial encounter (principal); Y82.8 Other medical devices associated with adverse incidents; I12.0 Hypertensive chronic kidney disease with stage 5 chronic kidney disease or end stage renal disease; N18.6 End stage renal disease; E10.22 Type 1 diabetes mellitus with diabetic chronic kidney disease; E10.40 Type 1 diabetes mellitus with diabetic neuropathy, unspecified; Z79.4 Long term (current) use of insulin; Z88.8 Allergy status to other drugs, medicaments and biological substances; Z99.2 Dependence on renal dialysis
CPT/HCPCS: 99152; 99153; C1769; J0690; J2250; J3010; J7030; J7040

== ENCOUNTER 2022-05-19 04:05 | Day surgery (SDC) | payer OTHER ==
[2022-05-19] MEDS ORDERED: PRED5 PO (07:53)
[2022-05-19] MEDS ORDERED: MYCO250 PO (07:53)
[2022-05-19] MEDS ORDERED: PROGRAF PO (07:53)
== END 2022-05-19 09:35 | disposition home or self-care (01) ==
LOC: ATC 04:05
DX: I12.9 Hypertensive chronic kidney disease with stage 1 through stage 4 chronic kidney disease, or unspecified chronic kidney disease (principal); N18.9 Chronic kidney disease, unspecified; E10.22 Type 1 diabetes mellitus with diabetic chronic kidney disease; D63.1 Anemia in chronic kidney disease; Z94.0 Kidney transplant status; Z79.4 Long term (current) use of insulin; Z79.899 Other long term (current) drug therapy
CPT/HCPCS: 36415; 36430; 86850; 86900; 86901; 86923; J7040; P9016

== ENCOUNTER 2022-07-23 01:00 | Day surgery (SDC) | payer OTHER ==
[~2022-07-23 01:00] MED LIST changes: +MYCO250 PO; +PRED5 PO; +PROGRAF PO
== END 2022-07-23 17:42 | disposition home or self-care (01) ==
LOC: ATC 01:00
DX: I12.0 Hypertensive chronic kidney disease with stage 5 chronic kidney disease or end stage renal disease (principal); E10.22 Type 1 diabetes mellitus with diabetic chronic kidney disease; N18.6 End stage renal disease; D64.9 Anemia, unspecified
CPT/HCPCS: 36415; 86850; 86900; 86901; 86923; J7040; P9016

== ENCOUNTER 2023-03-18 00:28 | Day surgery (SDC) | payer OTHER ==
[2023-03-18 14:40] VITALS: BP 120/82
[2023-03-18] MEDS ORDERED: MAGNESIUM OXID400 M1 PO (14:44)
== END 2023-03-18 16:35 | disposition home or self-care (01) ==
LOC: ATC 00:28
DX: E83.42 Hypomagnesemia (principal); I12.9 Hypertensive chronic kidney disease with stage 1 through stage 4 chronic kidney disease, or unspecified chronic kidney disease; N18.1 Chronic kidney disease, stage 1; D63.1 Anemia in chronic kidney disease; N25.81 Secondary hyperparathyroidism of renal origin; D50.9 Iron deficiency anemia, unspecified; E11.22 Type 2 diabetes mellitus with diabetic chronic kidney disease; E78.00 Pure hypercholesterolemia, unspecified
CPT/HCPCS: 96365; 96366; J3475

== ENCOUNTER 2023-03-19 06:19 | Day surgery (SDC) | payer OTHER ==
[~2023-03-19 06:19] MED LIST changes: +MAGNESIUM OXID400 M1 PO
[2023-03-19 08:13] VITALS: BP 105/81
== END 2023-03-19 09:54 | disposition home or self-care (01) ==
LOC: ATC 06:19
DX: E83.42 Hypomagnesemia (principal); I12.9 Hypertensive chronic kidney disease with stage 1 through stage 4 chronic kidney disease, or unspecified chronic kidney disease; N18.1 Chronic kidney disease, stage 1; E11.22 Type 2 diabetes mellitus with diabetic chronic kidney disease; D63.1 Anemia in chronic kidney disease; N25.81 Secondary hyperparathyroidism of renal origin; E11.21 Type 2 diabetes mellitus with diabetic nephropathy; D50.9 Iron deficiency anemia, unspecified; Z79.899 Other long term (current) drug therapy
CPT/HCPCS: 96365; 96366; J3475

== ENCOUNTER → 2023-05-25 | Outpatient (CLI) | payer OTHER ==
[2023-05-25 14:37] LABS: Microalbumin, Urine Quant. 24.8 mg/L (0.000-20.000); Protein, Urine Quantitative 26.2 mg/dL (0.0-11.9)
== END | disposition home or self-care (01) ==
LOC: LAB 06:30 → LAB SHORT 06:30
PROVIDERS: Internal Medicine Nephrology
DX: N18.2 Chronic kidney disease, stage 2 (mild) (principal); D63.1 Anemia in chronic kidney disease; N25.81 Secondary hyperparathyroidism of renal origin; E63.9 Nutritional deficiency, unspecified; R76.9 Abnormal immunological finding in serum, unspecified; R94.5 Abnormal results of liver function studies; R94.6 Abnormal results of thyroid function studies; D51.8 Other vitamin B12 deficiency anemias; D52.9 Folate deficiency anemia, unspecified; D50.9 Iron deficiency anemia, unspecified; Z94.0 Kidney transplant status
CPT/HCPCS: 81050; 82043; 82570; 84156